=== PATIENT | male | born 1970 | race Caucasian/White ===

== ENCOUNTER 2025-02-06 19:46 | Inpatient (IN) | payer OTHER ==
[~2025-02-06] VITALS: Ht 185.4 cm; Wt 103.0 kg
[~2025-02-06 19:46] MED LIST: ASPI1TAB20 PO; ATOR-47 PO; CARV6.2551 PO; FENO54TA4 PO; HYDR-2579 PO; LISI2.5T47 PO
[2025-02-06] MEDS: ACETAMINOPHEN 325 MG TAB PO ONE (19:59)
[2025-02-06 20:22] LABS: Basophils # (auto) 0.1 10 ^3/uL (0-0.2); Eosinophils # (auto) 0.2 10 ^3/uL (0-0.8); Lymphocytes # (auto) 1.8 10 ^3/uL (0.4-5.4); White Blood Cell 18.2 10^3/uL (4.4-10.8)
[2025-02-06 20:24] LABS: Basophils % (auto) 0.3 % (0.0-2.0); Hematocrit 36.3 % (41.0-53.0); Hemoglobin 11.2 g/dL (13.5-17.5); Lymphocytes % (auto) 9.7 % (10.0-50.0); Mean Corpuscular Hemoglobin 23.1 pg (28.0-32.0); Mean Corpuscular Hgb Conc. 30.9 g/dL (32.0-36.0); Mean Corpuscular Volume 74.6 fL (80.0-100.0); Monocytes # (auto) 2.7 10 ^3/uL (0-1.3); Monocytes % (auto) 14.8 % (0.0-12.0); Neutrophils # (auto) 13.5 10 ^3/uL (1.6-8.6); Neutrophils % (auto) 74.2 % (37.0-80.0); Nucleated Red Blood Cells % 0.1 %; Platelet Count (auto) 287 10^3/uL (140-450); Red Blood Cells 4.86 10^6/uL (4.5-5.90); Red Cell Distribution Width 18.8 % (11.8-14.3)
[2025-02-06 20:37] LABS: Alanine Aminotransferase 26 U/L (7-40); Albumin 4.1 g/dL (3.2-4.8); Anion Gap 10 (5-15); Aspartate Aminotransferase 27 U/L (13-40); BUN/Creatinine Ratio 13.2 (10.0-20.0); Blood Urea Nitrogen 12 mg/dL (9-23); Calcium 9.5 mg/dL (8.7-10.4); Carbon Dioxide 24 mmol/L (20-31); Potassium 4.7 mmol/L (3.5-5.1); Total Protein 6.5 g/dL (5.7-8.2)
[2025-02-06 20:39] LABS: Alkaline Phosphatase 151 U/L (46-116); Bilirubin, Total 1.6 mg/dL (0.2-1.0); Chloride 98 mmol/L (98-107); Glucose 154 mg/dL (74-106); Sodium 132 mmol/L (136-145)
--- NOTE | 2025-02-06 21:01 | ED.PDOC ---
Musculoskeletal HPI Comments 54 y/o M is BIBA from [facility] due to elevated heart rate and temperature, today. Patient reports being seen at facility, initially for his Charcot foot ulcer he has on the bottom of his left foot with associated pain. Patient has a long history of multiple foot ulcers as well as a toe amputation due to his condition. He denies any having any chest pain, shortness of breath, extremity swelling, or other associated symptoms at this time. Patient was febrile at 101.6 at arrival. Chief Complaint: Lower Extremity Time Seen by MD: 19:50 Primary Care Provider: SOHA Reviewed Notes: Nurses Notes, Floor Attendant Notes, Medications, Allergies Allergies: Coded Allergies: NO KNOWN ALLERGIES (Unverified , 10/29/15) Home Meds Reported Medications Hydrocodone-Acetaminophen (Hydrocodone/Acetaminophen) 1 Tab Tab, 1 TAB PO TID, #90 TAB 10/29/15 Aspirin (Aspir-81) 81 Mg Tab, 1 TAB PO DAILY, #30 TAB 5 Refills 10/29/15 Fenofibrate (Fenofibrate) 54 Mg Tab, 1 TAB PO DAILY, #30 TAB 5 Refills 10/29/15 Atorvastatin Calcium (ATORVASTATIN CALCIUM) 80 Mg Tab, 1 TAB PO DAILY, #30 TAB 5 Refills 10/29/15 Lisinopril (Lisinopril) 2.5 Mg Tab, 1 TAB PO DAILY, #30 TAB 5 Refills 10/29/15 Carvedilol (Carvedilol) 6.25 Mg Tab, 1 TAB PO BID, #180 TAB 1 Refill 10/29/15 Information Source: Patient, Spouse Mode of Arrival: EMS Location: Left Extremity Location: Foot Timing: Days Prehospital treatment: Treatment Severity: Moderate Able to Move Extremity: Yes Bear Weight: Limited Pain: Moderate Hand Dominance: Right Mechanism: Other (Long history of foot ulcerations) Circumstances: Spontaneous Onset of Symptoms: Spontaneous Symptoms: Swelling, Pain DVT Risk Factors: NONE Past Medical History PAST MEDICAL HISTORY: CHF, DM, HTN Past Medical History (Other): Charcot foot Surgical History: Denies all surgeries Family History Family History: Unknown Social History Smoker: Non-Smoker Alcohol: Denies ETOH Use Drugs: Denies Drug Use Lives In: Home Constitutional: reports: fever; denies: chills, diaphoresis, fatigue, malaise, sweats, weakness, others EENTM: denies: blurred vision, double vision, ear bleeding, ear discharge, ear drainage, ear pain, ear ringing, eye pain, eye redness, hearing loss, mouth pain, mouth swelling, nasal discharge, nose bleeding, nose congestion, nose pain, photophobia, tearing, throat pain, throat swelling, voice changes, others Respiratory: denies: cough, hemoptysis, orthopnea, SOB at rest, shortness of breath, SOB with excertion, stridor, wheezing, others Cardiovascular: denies: chest pain, dizzy spells, diaphoresis, Dyspnea on exertion, edema, irregular heart beat, left arm pain, lightheadedness, palpitations, PND, syncope, others Gastrointestinal: denies: abdomen distended, abdominal pain, blood streaked bowels, constipated, diarrhea, dysphagia, difficulty swallowing, hematemesis, melena, nausea, poor appetite, poor fluid intake, rectal bleeding, rectal pain, vomiting, others Genitourinary: denies: burning, dysuria, flank pain, frequency, hematuria, incontinence, penile discharge, penile sore, pain, testicle pain, testicle swelling, urgency, others Neurological: denies: dizziness, fainting, headache, left sided numbness, left sided weakness, numbness, paresthesia, pre-existing deficit, right sided numbness, right sided weakness, seizure, speech problems, tingling, tremors, weakness, others Musculoskeletal: denies: back pain, gout, joint pain, joint swelling, muscle pain, muscle stiffness, neck pain, others Integumetry: reports: wounds (Bilateral foot ulcers); denies: bruises, change in color, change in hair/nails, dryness, laceration, lesions, lumps, rash, others Allergic/Immunocompromised: denies: Difficulty Healing, Frequent Infections, Hives, Itching, others Hematologic/Lymphatic: denies: anemia, blood clots, easy bleeding, easy bruising, swollen glands, others Endocrine: denies: excessive hunger, excessive sweating, excessive thirst, excessive urination, flushing, intolerance to cold, intolerance to heat, unexplained weight gain, unexplained weight loss, others Psychiatric: denies: anxiety, bipolar disorder, depression, hopeless, panic disorder, schizophrenia, sleepless, suicidal, others All Other Systems: Reviewed and Negative (as per HPI) Physical Exam General Appearance: Moderate Distress (Due to foot pain and swelling concerns.), Normal HEENT: Normal ENT Inspection, Pharynx Normal, TMs Normal Neck: Full Range of Motion, Non-Tender, Normal, Normal Inspection Respiratory: Chest Non-Tender, Lungs Clear, No Accessory Muscle Use, No Respiratory Distress, Normal Breath Sounds Cardiovascular: No Edema, No JVD, No Murmur, No Gallop, Normal Peripheral Pulses, Regular Rate/Rhythm Breast Exam: Deferred Gastrointestinal: No Organomegaly, Non Tender, No Pulsatile Mass, Normal Bowel Sounds, Soft Genitalia: Deferred Pelvic: Deferred Rectal: Deferred Extremities: Other (Patient displays bilateral pedal foot ulcers with left side significantly worse than right. Localized edema in both feet with localized erythema. Drainage appreciated in left foot greater than right.) Neurologic: Alert, No Motor Deficits, Normal Affect, Normal Mood, No Sensory Deficits Cerebellar Function: Normal Reflexes: Normal Skin: Dry, Normal Color, Warm Lymphatic: No Adenopathy Was a procedure done? Was a procedure done?: No Differential Diagnosis EXT Differential Diagnosis: Cellulitis, Septic, Other (Chronic foot ulcers) X-Ray, Labs, Meds, VS Vital Signs Date Time Temp Pulse Resp B/P (MAP) Pulse Ox O2 Delivery O2 Flow Rate FiO2 02/07/25 00:03 99 02/07/25 00:01 103 18 118/55 02/06/25 21:02 113 18 96/56 (69) 92 02/06/25 20:59 98.7 02/06/25 19:59 101.6 02/06/25 19:50 101.6 116 18 120/71 (87) 98 101.6 Lab Test 02/06/25 21:13 02/06/25 20:07 Range/Units Troponin I High Sensitivity 3 L 3 L </=54 ng/L White Blood Count 18.2 H 4.4-10.8 10^3/uL Red Blood Count 4.86 4.5-5.90 10^6/uL Hemoglobin 11.2 L 13.5-17.5 g/dL Hematocrit 36.3 L 41.0-53.0 % Mean Corpuscular Volume 74.6 L 80.0-100.0 fL Mean Corpuscular Hemoglobin 23.1 L 28.0-32.0 pg Mean Corpuscular Hemoglobin Concent 30.9 L 32.0-36.0 g/dL Red Cell Distribution Width 18.8 H 11.8-14.3 % Platelet Count 287 140-450 10^3/uL Mean Platelet Volume 7.3 6.9-10.8 fL Neutrophils (%) (Auto) 74.2 37.0-80.0 % Lymphocytes (%) (Auto) 9.7 L 10.0-50.0 % Monocytes (%) (Auto) 14.8 H 0.0-12.0 % Eosinophils (%) (Auto) 1.0 0.0-7.0 % Basophils (%) (Auto) 0.3 0.0-2.0 % Neutrophils # (Auto) 13.5 H 1.6-8.6 10 ^3/uL Lymphocytes # (Auto) 1.8 0.4-5.4 10 ^3/uL Monocytes # (Auto) 2.7 H 0-1.3 10 ^3/uL Eosinophils # (Auto) 0.2 0-0.8 10 ^3/uL Basophils # (Auto) 0.1 0-0.2 10 ^3/uL Nucleated Red Blood Cells 0.1 % Sodium Level 132 L 136-145 mmol/L Potassium Level 4.7 3.5-5.1 mmol/L Chloride Level 98 98-107 mmol/L Carbon Dioxide Level 24 20-31 mmol/L Anion Gap 10 5-15 Blood Urea Nitrogen 12 9-23 mg/dL Creatinine 0.91 0.700-1.30 mg/dL Glomerular Filtration Rate Calc 100 >90 mL/min BUN/Creatinine Ratio 13.2 10.0-20.0 Serum Glucose 154 H 74-106 mg/dL Lactic Acid Level 1.8 0.4-2.0 mmol/L Calcium Level 9.5 8.7-10.4 mg/dL Total Bilirubin 1.6 H 0.2-1.0 mg/dL Aspartate Amino Transferase (AST) 27 13-40 U/L Alanine Aminotransferase (ALT) 26 7-40 U/L Alkaline Phosphatase 151 H 46-116 U/L B-Type Natriuretic Peptide 74.81 0-100 pg/mL Total Protein 6.5 5.7-8.2 g/dL Albumin 4.1 3.2-4.8 g/dL Current Medications Medications (Trade) Dose Ordered Sig/Leyla Route Start Time Stop Time Status Last Admin Acetaminophen (Tylenol Tablet) 1,000 mg ONCE ONCE PO 02/06/25 20:00 02/06/25 20:01 DC 02/06/25 19:59 Hydromorphone HCl (Dilaudid Injection) 0.5 mg ONCE ONCE IM 02/06/25 20:00 02/06/25 20:01 DC 02/07/25 00:01 Piperacillin Sod/ Tazobactam Sod 100 ml @ 100 mls/hr ONCE ONCE IV 02/06/25 23:45 02/07/25 00:44 02/07/25 00:02 X-Ray, Labs, Meds, VS Comment All studies performed at the ED today were evaluated by me personally. EKG revealed a sinus rhythm with a rate of 99. Nonspecific intraventricular conduction delay as well as signs of inferior lateral infarct that is old. DE interval 140 and QT interval of 353. Unremarkable EKG. Serum laboratories confirmed a significant leukocytosis, anemia, hyponatremia and elevated bilirubin. CT of fluid for osteo utilize was pending. CT of abdomen for elevated laboratories was pending at time of this note. Empiric dual antibiotics has been started for the foot ulcerations. Imaging studies will be reviewed when returned. Patient will be admitted for IV antibiotics as well as podiatry evaluation. Time of 1ST Reevaluation: 23:47 Reevaluation 1ST: Improved Consultation: PCP, Other (Animal Cop) Patient Education/Counseling: Diagnosis, Treatment Family Education/Counseling: Diagnosis, Treatment, No Family Present Departure 1 Departure Time of Disposition: 23:48 Impression: Primary Impression: Cellulitis Additional Impressions: Foot ulceration Hyponatremia Elevated bilirubin Anemia Disposition: 09 ADMITTED INPATIENT Condition: Stable Discharged With: Self, Spouse Critical Care Note Critical Care Time?: No Stability Stability form required: No Heart Score Heart Score: Heart Score Response (Comments) Value History N/A 0 EKG N/A 0 Age N/A 0 Risk Factors N/A 0 Troponin N/A 0 Total 0 I personally scribed for GUIDO RICHARDS PAC ([email or web address]) on 02/06/25 at 21:01. Electronically submitted by Neil Bergeron ([email or web address]). GUIDO RICHARDS PAC Feb 06, 2025 21:01
[2025-02-06] MEDS ORDERED: VANCOMYCIN PER PHARMACY 0 MG IV SCH (23:45)
[2025-02-07] VITALS: PULSE 96; RESP 18; O2SAT 96
[2025-02-07] MEDS: HYDROMORPHONE HCL 1 MG/ML INJ IM ONE (00:01)
[2025-02-07] MEDS: PIPERACILLIN-TAZOB 3.375GM 100 ML IV ONE ×2 (00:02→09:12)
--- NOTE | 2025-02-07 00:12 | DVH ---
EXAM: CT CT L FOOT WO CONTRAST HISTORY: Rule out osteo COMPARISON: None TECHNIQUE: Noncontrast axial CT images of the left foot were performed. Sagittal and coronal reformat umm images were obtained. This CT exam was performed using one or more of the following dose reductio n techniques: Automated exposure control, adjustment of the mA and/or kv according to patient size, o r the use of iterative reconstruction techniques. Radiation Dose Information: CT Dose: CTDI volume is 7.75+ 0.14 mGy. Dose-length product is 190.58 mGy *cm FINDINGS: Normal mineralization and alignment. Ankle joint is preserved. Subtalar joint is maintained. There is lucency and destructive changes in the minimal /base of the 2nd through 5th metatarsals as well as s clerosis of the these metatarsals throughout nearly the entire shaft. There is destructive changes wi th associated gas in the navicular, all of the cuneiforms and the cuboid bone. Associated gas through out the midfoot. There is a tract of gas extending to the plantar skin surface at the midfoot (series 602, image 67. There is diffuse subcutaneous edema in the left foot most pronounced at the mid aspec t. No obvious fluid collection on noncontrast study. IMPRESSION: 1. Destructive change with lucency in the proximal and base of the 2nd through 5th metatarsals, navic ular, all of the cuneiform bones, and cuboid bone with associated gas likely osteomyelitis. 2. No definite abscess. 3. Tract of gas extends to the plantar skin surface at the midfoot. 4. Diffuse soft tissue edema in the left foot most pronounced in the midfoot.
--- NOTE | 2025-02-07 00:26 | DVH ---
Exam: CT CT AB PEL WO CON-NO ORAL OR IV History: Elevated labs Comparison Study: None Technique: Multidetector spiral CT of the abdomen was performed from lung bases to pubic symphysis. I maging was performed without IV contrast. Axial, coronal and sagittal multiplanar reformats were obta ined from the axial data set by the technologist. Radiation Dose : 1. Abdomen/Pelvis: CTDIvol 22.63 mGy, DLP 1428.96 mGy*cm. Findings: Evaluation of solid organs is limited due to lack of intravenous contrast use. Lung Bases: No acute or significant lung base finding. Normal heart size. No pleural or pericardial effusion. Median sternotomy sutures are noted. Liver: The liver is normal in size. No focal lesions. Gallbladder and Biliary Tree: Unremarkable Spleen: Unremarkable Pancreas: The pancreas is grossly normal in appearance. Adrenal Glands: Unremarkable Kidneys: Kidneys are grossly normal without calculi or hydronephrosis. Bladder: Grossly unremarkable for degree of distention. Bowel: The stomach is grossly normal in appearance. Small bowel and colon are normal in caliber and d istribution. The appendix is normal. Ascites: Absent Lymphadenopathy: No mesenteric, retroperitoneal or periportal lymphadenopathy. Abdominal Wall and Mesentery: Unremarkable. Vasculature: The visualized abdominal aorta is normal in size and caliber. Atherosclerotic vascular c alcifications are noted. Evaluation of abdominal and pelvic vessels is limited due to lack of intrav enous contrast. Pelvic Organs: Unremarkable. Fat containing left inguinal hernia. Musculoskeletal: No aggressive focal bony lesions, acute fractures or dislocation. IMPRESSION: 1. No acute abdominal or pelvic findings. Radiation optimization: All CT scans at this facility use at least one of these dose optimization ruddy hniques: automated exposure control mA and/or kV adjustment per patient size (includes targeted exam s where dose is matched to clinical indication) or iterative reconstruction.
[2025-02-07] MEDS: HYDROMORPHONE HCL 1 MG/ML INJ IV ONE (04:01)
[2025-02-07] MEDS: KETOROLAC TROMETH 30 MG/ML 1ML VIAL IV ONE (05:24)
[2025-02-07] MEDS ORDERED: DEXTROSE (50%) 50ML SYRG IV PRN ×2 (08:30→10:45)
[2025-02-07] MEDS ORDERED: VANCOMYCIN PER PHARMACY 0 MG IV SCH (08:30)
--- NOTE | 2025-02-07 08:42 | DVHHP2 ---
History of Present Illness Reason for Visit: Diabetic foot ulcer History of Present Illness This 54-year-old male with past medical history of diabetes, chronic diabetic foot ulcer s/p right 5th toe amputation, osteomyelitis, Charcot foot ulcers, hypertension, and obesity, presents in the ED with a chief complaint of elevated heart rate and temperature. The patient reports was being seen at [facility] urgent care and was advised to go to the ER due to elevated heart rate and temperature. The patient reports chronic right plantar diabetic foot ulcer for many years. He states that left plantar diabetic foot ulcer started about a month ago. He was being seen by his Podiatry for chronic diabetic foot ulcer. Denies dizziness, chest pain, shortness of breath, edema, or other acute symptoms Past Medical History As stated in HPI Past Surgical History Right 5th toe amputation Family History Reviewed, non-contributory to the management of this case. Past Social History The patient lives at home, denies smoking, alcohol or illicit drugs abuse. Review of Systems Constitutional: Yes: Fever, Malaise; No: Chills, Sweats, Weakness, Other Eyes: No: Pain, Vision change, Conjunctivae inflammation, Eyelid inflammation, Other, Redness ENT: No: Ear pain, Ear discharge, Nose pain, Nose discharge, Nose congestion, Mouth pain, Mouth swelling, Throat pain, Throat swelling, Other Respiratory: No: Cough, Dry, Shortness of breath, SOB with excertion, Wheezing, Hemoptysis, Pleuritic Pain, Sputum, Wheezing, Other Cardiovascular: No: Chest Pain, Palpitations, Orthopnea, Paroxysmal Noc. Dyspnea, Edema, Lt Headedness, Other Gastrointestinal: No: Nausea, Vomiting, Abdominal Pain, Diarrhea, Constipation, Melena, Hematochezia, Other Genitourinary: No Dysuria, No Frequency, No Incontinence, No Hematuria, No Retention, No Other Musculoskeletal: No: other, neck pain, shoulder pain, arm pain, back pain, hand pain, leg pain, foot pain Skin: Rash, Lesions, Other (open wounds bilat plantar); No: Jaundice, Bruising Allergies: Coded Allergies: NO KNOWN ALLERGIES (Unverified , 10/29/15) Medications Current Medications Medications Dose Ordered Sig/Leyla Route Start Time Stop Time Status Last Admin Dose Admin Vancomycin HCl 0 ml @ 0 mls/hr UD IV 02/06/25 23:45 UNV Exam Vital Signs Vital Signs Date Time Temp Pulse Resp B/P (MAP) Pulse Ox O2 Delivery O2 Flow Rate FiO2 02/07/25 06:00 92 16 98/47 (64) 94 02/07/25 00:00 Room Air* 0 21 21 02/06/25 20:59 98.7 General Appearance: Alert, Oriented X3, mild distress HEENT: Atraumatic, PERRLA, EOMI Respiratory: Clear to auscultation, Normal air movement Cardiovascular: Regular rate, Normal S1, Normal S2 Abdominal: Normal bowel sounds, Soft, No tenderness Extremities: Other (Bilateral plantar diabetic foot ulcer with purulent drainage and foul smell) Neuro: Normal speech Psych/Mental Status: Mental status NL Labs/Xrays Labs Test 02/06/25 21:13 02/06/25 20:07 Range/Units Troponin I High Sensitivity 3 L </=54 ng/L White Blood Count 18.2 H 4.4-10.8 10^3/uL Red Blood Count 4.86 4.5-5.90 10^6/uL Hemoglobin 11.2 L 13.5-17.5 g/dL Hematocrit 36.3 L 41.0-53.0 % Mean Corpuscular Volume 74.6 L 80.0-100.0 fL Mean Corpuscular Hemoglobin 23.1 L 28.0-32.0 pg Mean Corpuscular Hemoglobin Concent 30.9 L 32.0-36.0 g/dL Red Cell Distribution Width 18.8 H 11.8-14.3 % Platelet Count 287 140-450 10^3/uL Mean Platelet Volume 7.3 6.9-10.8 fL Neutrophils (%) (Auto) 74.2 37.0-80.0 % Lymphocytes (%) (Auto) 9.7 L 10.0-50.0 % Monocytes (%) (Auto) 14.8 H 0.0-12.0 % Eosinophils (%) (Auto) 1.0 0.0-7.0 % Basophils (%) (Auto) 0.3 0.0-2.0 % Neutrophils # (Auto) 13.5 H 1.6-8.6 10 ^3/uL Lymphocytes # (Auto) 1.8 0.4-5.4 10 ^3/uL Monocytes # (Auto) 2.7 H 0-1.3 10 ^3/uL Eosinophils # (Auto) 0.2 0-0.8 10 ^3/uL Basophils # (Auto) 0.1 0-0.2 10 ^3/uL Nucleated Red Blood Cells 0.1 % Sodium Level 132 L 136-145 mmol/L Potassium Level 4.7 3.5-5.1 mmol/L Chloride Level 98 98-107 mmol/L Carbon Dioxide Level 24 20-31 mmol/L Anion Gap 10 5-15 Blood Urea Nitrogen 12 9-23 mg/dL Creatinine 0.91 0.700-1.30 mg/dL Glomerular Filtration Rate Calc 100 >90 mL/min BUN/Creatinine Ratio 13.2 10.0-20.0 Serum Glucose 154 H 74-106 mg/dL Lactic Acid Level 1.8 0.4-2.0 mmol/L Calcium Level 9.5 8.7-10.4 mg/dL Total Bilirubin 1.6 H 0.2-1.0 mg/dL Aspartate Amino Transferase (AST) 27 13-40 U/L Alanine Aminotransferase (ALT) 26 7-40 U/L Alkaline Phosphatase 151 H 46-116 U/L B-Type Natriuretic Peptide 74.81 0-100 pg/mL Total Protein 6.5 5.7-8.2 g/dL Albumin 4.1 3.2-4.8 g/dL PROCEDURE(s): LFTCT - CT L FOOT WO CONTRAST REASON: Rule out osteo ORDER NUMBER(s): [id number], ACCESSION NUMBER(s): [id number] EXAM: CT CT L FOOT WO CONTRAST HISTORY: Rule out osteo COMPARISON: None TECHNIQUE: Noncontrast axial CT images of the left foot were performed. Sagittal and coronal reformatted images were obtained. This CT exam was performed using one or more of the following dose reduction techniques: Automated exposure control, adjustment of the mA and/or kv according to patient size, or the use of iterative reconstruction techniques. Radiation Dose Information: CT Dose: CTDI volume is 7.75+ 0.14 mGy. Dose-length product is 190.58 mGy*cm FINDINGS: Normal mineralization and alignment. Ankle joint is preserved. Subtalar joint is maintained. There is lucency and destructive changes in the minimal /base of the 2nd through 5th metatarsals as well as sclerosis of the these metatarsals throughout nearly the entire shaft. There is destructive changes with associated gas in the navicular, all of the cuneiforms and the cuboid bone. Associated gas throughout the midfoot. There is a tract of gas extending to the plantar skin surface at the midfoot (series 602, image 67. There is diffuse subcutaneous edema in the left foot most pronounced at the mid aspect. No obvious fluid collection on noncontrast study. IMPRESSION: 1. Destructive change with lucency in the proximal and base of the 2nd through 5th metatarsals, navicular, all of the cuneiform bones, and cuboid bone with associated gas likely osteomyelitis. 2. No definite abscess. 3. Tract of gas extends to the plantar skin surface at the midfoot. 4. Diffuse soft tissue edema in the left foot most pronounced in the midfoot. Assessment/Plan Assessment/Plan # diabetic foot ulcer, bilateral plantar # possible osteomyelitis # rule out sepsis # chronic diabetic foot ulcer s/p right 5th toe amputation Admit to med/surg unit Darell Olivera Podiatry consult blood & Wound culture Wound consult IV slowly # DM type 2 with hyperglycemia A1c 7.3 ISS checked a1c Statins # hypertension Hold BP meds given soft BP # obesity Lifestyle modification counseled with regular exercise, diet and weight loss DVT prophylaxis Medical plan discussed with patient Plan discussed with: Patient Date of Service: Feb 07, 2025 Billing Provider: GALE BETANCOURT Common Visit Codes: 13389-OESHVBD INP/OBS CARE (HIGH) GALE BETANCOURT Feb 07, 2025 08:42
[2025-02-07] MEDS: SODIUM CHLORIDE 0.9% 2,250 ML IV ONE (09:13)
[2025-02-07 09:41] LABS: Triglycerides 95 mg/dL (< 150)
[2025-02-07 09:42] LABS: LDL Cholesterol 48 mg/dL (< 100)
[2025-02-07 09:43] LABS: Cholesterol 108 mg/dL (< 200); HDL Cholesterol 34 mg/dL (40-59)
[2025-02-07] MEDS: FENOFIBRATE 54 MG PO SCH (10:00)
[2025-02-07] MEDS: ENOXAPARIN SOD 40 MG/0.4 ML SYRINGE SC SCH (11:07)
[2025-02-07] MEDS: ASPirin-EC 81 mg tab PO SCH (11:07)
[2025-02-07] MEDS: ONDANSETRON HCL 4 MG/2 ML VIAL IV PRN (11:07)
[2025-02-07] MEDS: MORPHINE SULFATE INJ 2 MG/ml SYRG IV PRN (11:08)
[2025-02-07] MEDS: InsuLIN REG 1unit/0.01ml Soln (100units/ml) SC SCH (11:30)
[2025-02-07] MEDS ORDERED: InsuLIN REG 1unit/0.01ml Soln (100units/ml) SC SCH (11:30)
[2025-02-07] MEDS ORDERED: ACCU-CHEK COMFORT CURVE STRIP VI SCH (11:30)
[2025-02-07] MEDS: ACCU-CHEK COMFORT CURVE STRIP VI SCH (11:56)
[2025-02-07] MEDS: SODIUM CHLORIDE 0.9% 1,000 ML IV SCH (13:27)
[2025-02-07] MEDS: VANCOMYCIN 1.75GM/350ML 350 ML IV SCH (16:43)
[2025-02-07 19:30] VITALS: PULSE 112; RESP 17; O2SAT 98
[2025-02-07] MEDS: HYDROcodone-ACET 5/325MG TAB PO PRN (20:52)
[2025-02-07] MEDS: PIPERACILLIN-TAZOB 3.375GM 100 ML IV SCH (21:06)
[2025-02-07] MEDS: ACETAMINOPHEN 325 MG TAB PO PRN (22:08)
[2025-02-07] MEDS: ATORVASTATIN 20 MG TAB PO SCH (22:53)
[2025-02-08] MEDS: INSULIN LANTUS (GLARGINE) 1 /0.01ml (100units/ml) SC SCH (02:26)
[2025-02-08 06:16] LABS: Alanine Aminotransferase 15 U/L (7-40); Albumin 3.9 g/dL (3.2-4.8); Anion Gap 10 (5-15); Aspartate Aminotransferase 17 U/L (13-40); BUN/Creatinine Ratio 13.2 (10.0-20.0); Bilirubin, Total 1.1 mg/dL (0.2-1.0); Blood Urea Nitrogen 9 mg/dL (9-23); Calcium 9.5 mg/dL (8.7-10.4); Carbon Dioxide 23 mmol/L (20-31); Chloride 102 mmol/L (98-107); Potassium 3.9 mmol/L (3.5-5.1); Total Protein 6.7 g/dL (5.7-8.2)
[2025-02-08 06:21] LABS: Alkaline Phosphatase 128 U/L (46-116); Glucose 148 mg/dL (74-106); Sodium 135 mmol/L (136-145)
[2025-02-08 08:02] LABS: Basophils # (auto) 0 10 ^3/uL (0-0.2); Eosinophils # (auto) 0.3 10 ^3/uL (0-0.8); Eosinophils % (auto) 2.6 % (0.0-7.0)
[2025-02-08 08:03] LABS: Basophils % (auto) 0.4 % (0.0-2.0); Hematocrit 29.6 % (41.0-53.0); Hemoglobin 9.5 g/dL (13.5-17.5); Lymphocytes # (auto) 1.3 10 ^3/uL (0.4-5.4); Lymphocytes % (auto) 12.7 % (10.0-50.0); Mean Corpuscular Hemoglobin 24.3 pg (28.0-32.0); Mean Corpuscular Hgb Conc. 32.2 g/dL (32.0-36.0); Mean Corpuscular Volume 75.4 fL (80.0-100.0); Monocytes # (auto) 1.1 10 ^3/uL (0-1.3); Monocytes % (auto) 11.2 % (0.0-12.0); Neutrophils # (auto) 7.4 10 ^3/uL (1.6-8.6); Neutrophils % (auto) 73.1 % (37.0-80.0); Platelet Count (auto) 219 10^3/uL (140-450); Red Blood Cells 3.93 10^6/uL (4.5-5.90); Red Cell Distribution Width 18.9 % (11.8-14.3); White Blood Cell 10.1 10^3/uL (4.4-10.8)
[2025-02-08] MEDS: VANCOMYCIN 1.75GM/350ML 350 ML IV SCH (09:05)
[2025-02-08] MEDS: PIPERACILLIN-TAZOB 3.375GM 100 ML IV SCH (10:15)
--- NOTE | 2025-02-08 13:25 | DVHPN2 ---
Progress Note - Dictate Date Seen: Feb 08, 2025 Has the PT tested + for MRSA If YES, has PT been informed?: No Medical Necessity Reason Pt with a Central, PICC or Fol: No Subjective Patient was seen and evaluated in ER hallway 14. Patient at the bedside. Patient feels frustrated as he has not been able to sleep for over 24 hours as he has not been assigned a room and has been there apparently since Saturday. Patient no longer having fevers and denies any chills. Patient has been eating without any acute complaints. Patient denies any nausea, vomiting, chest pain, or shortness of breath. Patient says that wound care nurse came by yesterday but not yet today. vital signs Vital Sign Date Time Temp Pulse Resp B/P (MAP) Pulse Ox O2 Delivery O2 Flow Rate FiO2 02/08/25 06:00 105 14 107/51 (69) 96 02/07/25 23:08 99.3 99.3 02/07/25 19:30 Room Air* 0 21 21 Total Intake and Output 02/07/25 02/07/25 02/08/25 15:00 23:00 07:00 Intake Total 2450 ml 1305 ml 832 ml Balance 2450 ml 1305 ml 832 ml medications Current Medications Medications Dose Ordered Sig/Leyla Route Start Time Stop Time Status Last Admin Dose Admin Vancomycin HCl 0 ml @ 0 mls/hr UD IV 02/06/25 23:45 UNV Acetaminophen/ Hydrocodone Bitart 1 tab Q4HP PRN PO 02/07/25 08:30 02/08/25 04:16 1 TAB Ondansetron HCl 4 mg Q4HP PRN IV 02/07/25 08:30 02/07/25 11:07 4 MG Enoxaparin Sodium 40 mg DAILY SC 02/07/25 10:00 02/07/25 11:07 40 MG Acetaminophen 650 mg Q6HP PRN PO 02/07/25 08:30 02/07/25 22:08 650 MG Morphine Sulfate 2 mg Q4HPRN PRN IV 02/07/25 08:30 02/07/25 16:43 2 MG Vancomycin HCl 0 ml @ 0 mls/hr UD IV 02/07/25 08:30 Aspirin 81 mg DAILY PO 02/07/25 10:00 02/07/25 11:07 81 MG Atorvastatin Calcium 80 mg HS PO 02/07/25 22:00 02/07/25 22:53 80 MG Patient Own Medication 1 tab DAILY PO 02/07/25 10:00 Sodium Chloride 1,000 ml @ 100 mls/hr Q10H IV 02/07/25 08:30 02/08/25 04:54 100 MLS/HR Diagnostic Test (Pha) 1 strip ACHS 02/07/25 11:30 02/08/25 07:01 1 STRIP Insulin Human Regular ACHS SC 02/07/25 11:30 02/08/25 07:03 3 UNITS Dextrose 50 ml UD PRN IV 02/07/25 10:45 Insulin Glargine 10 units HS SC 02/07/25 22:00 02/08/25 02:26 10 UNITS Vancomycin HCl 350 ml @ 233.333 mls/hr Q12H IV 02/08/25 08:00 02/08/25 09:05 233.333 MLS/HR Piperacillin Sod/ Tazobactam Sod 100 ml @ 25 mls/hr Q6H IV 02/08/25 09:00 02/08/25 10:15 25 MLS/HR objective GEN: A&Ox3, NAD HEENT: NC/AT, EOMI CV: S1S2+, RRR, No rubs, gallops, or murmurs Lungs: Clear to auscultation bilaterally Abd: Soft, NT, ND + BS RLE: patient has lateral mid foot ulcer that seems to be granulated and healing. LLE: Patient has a significantly swollen foot, erythema, adn tenderness on exam. Patient has mid foot plantar aspect ulcer with drainage from the site. patient has an additional healing ulcer int he plantar surface at the distal plantar foot that is is not stageable. laboratory and microbiology Laboratory Tests 02/08/25 07:51 02/08/25 05:24 Test 02/08/25 05:24 Range/Units Serum Glucose 148 H 74-106 mg/dL Problem List 1. SIRS 2. Left foot Infected diabetic foot ulcer with surrounding cellulitis 3. Possible Left foot osteomyelitis Secondary Diagnosis: 4. Chronic Right foot diabetic foot ulcer 5. Diabetes Mellitus Type 2 with complications 6. Essential HTN 7. Hyperlipidemia Assessment/Plan - Continue broad spectrum Abx with Vancomycin And Zosyn Day 2, continue to follow BCx and wound Cx results, ID consult has been requested. - Podiatry evaluation is pending. Patient has cellulitic changes of the left foot with possible underline osteomyelitis. - Diabetic Diet, AC/HS accuchecks, and ISS (HbA1c at 7,3) - AM Labs, ESR and CRP level - Hydralazine 10mg IV PRN Q6H for SBP > 150mmHg DVT prophylaxis: Lovenox 40mg SQ daily Full Code Dispo: Continue to monitor on Med Surg. Plan discussed with: Patient, Spouse CAITY BAUTISTA MD Feb 08, 2025 13:25
[2025-02-08] MEDS ORDERED: hydrALAZINE HCL 20 MG/ML VL IV PRN (13:30)
[2025-02-08 14:13] LABS: Erythrocyte Sedimentation Rate 87 mm/hr (0-20)
--- NOTE | 2025-02-08 14:52 | ECG ---
[facility] Test Date: 2025-02-07 Test Time: 00:03:09 Pat Name: KRANTHI WHITFIELD Department: ED Room: 0220 Gender: M Delivery Crew Member: NAN : 1970 Requested By: GUIDO RICHARDS Order Number: [id number] Reading MD: Virja Andre Measurements Intervals [place] Rate: 99 P: -15 OR: 140 QRS: 58 QRSD: 117 T: 5 QT: 353 QTc: 453 Interpretive Statements Sinus rhythm Nonspecific intraventricular conduction delay Inferolateral infarct, old Electronically Signed On 02-10-2025 20:54:35 PDT by Viraj Andre Please click the below link to view image of tracing.
[2025-02-08 16:45] VITALS: PULSE 104; RESP 19; O2SAT 97
[2025-02-08] MEDS ORDERED: GABA-1250 PO (17:21)
[2025-02-08] MEDS ORDERED: GLIP10TA21 PO (17:21)
[2025-02-08] MEDS ORDERED: ATOR20TA PO (17:23)
[2025-02-08] MEDS ORDERED: BISO5TAB44 PO (17:25)
[2025-02-08] MEDS ORDERED: PRAM0.373 PO (17:28)
[2025-02-08] MEDS ORDERED: SPIR25TA8 PO (17:29)
[2025-02-08] MEDS ORDERED: DULO60CA41 PO (17:30)
[2025-02-08] MEDS ORDERED: TRAZ-228 PO (17:32)
[2025-02-08] MEDS ORDERED: CYCL-837 PO (17:33)
[2025-02-08] MEDS ORDERED: DOXY50CA PO (17:35)
[2025-02-08] MEDS ORDERED: FURO20TA4 PO (17:36)
[2025-02-08] MEDS ORDERED: LEVO750T40 PO (17:36)
[2025-02-08 20:00] VITALS: PULSE 107; RESP 18; O2SAT 96
[2025-02-08 21:00] VITALS: BP 115/69; PULSE 107; RESP 18; TEMP 98.1; O2SAT 96
[2025-02-09] VITALS (8 sets, daily range): BP systolic 98–137; BP diastolic 53–63; PULSE 88–98; RESP 17–18; TEMP 97.5–98.7; O2SAT 97–99
[2025-02-09 08:38] LABS: Basophils # (auto) 0 10 ^3/uL (0-0.2); Eosinophils # (auto) 0.3 10 ^3/uL (0-0.8); Hemoglobin 10.3 g/dL (13.5-17.5); Lymphocytes # (auto) 1.3 10 ^3/uL (0.4-5.4); Monocytes # (auto) 0.9 10 ^3/uL (0-1.3); Neutrophils # (auto) 5.8 10 ^3/uL (1.6-8.6)
[2025-02-09 08:40] LABS: Basophils % (auto) 0.3 % (0.0-2.0); Hematocrit 31.4 % (41.0-53.0); Lymphocytes % (auto) 15.7 % (10.0-50.0); Mean Corpuscular Hemoglobin 24.5 pg (28.0-32.0); Mean Corpuscular Hgb Conc. 32.6 g/dL (32.0-36.0); Mean Corpuscular Volume 75.1 fL (80.0-100.0); Monocytes % (auto) 10.6 % (0.0-12.0); Neutrophils % (auto) 69.4 % (37.0-80.0); Platelet Count (auto) 252 10^3/uL (140-450); Red Blood Cells 4.18 10^6/uL (4.5-5.90); Red Cell Distribution Width 18.9 % (11.8-14.3); White Blood Cell 8.3 10^3/uL (4.4-10.8)
[2025-02-09 08:50] LABS: Anion Gap 12 (5-15); Carbon Dioxide 26 mmol/L (20-31); Chloride 101 mmol/L (98-107); Potassium 3.9 mmol/L (3.5-5.1); Sodium 139 mmol/L (136-145)
[2025-02-09 08:51] LABS: Calcium 9.9 mg/dL (8.7-10.4)
[2025-02-09 08:56] LABS: BUN/Creatinine Ratio 10.5 (10.0-20.0)
[2025-02-09 08:57] LABS: Blood Urea Nitrogen 8 mg/dL (9-23); Glucose 115 mg/dL (74-106)
--- NOTE | 2025-02-09 09:44 | DVH ---
CLINICAL HISTORY: 54 years old, Male; evaluate for osteomylitis. TECHNIQUE: Multi sequence multi planar MRI images of the left foot were obtained without IV contrast . COMPARISON: CT CT L FOOT WO CONTRAST on DOS: 02/06/25 FINDINGS: There is deformity, sclerosis, and cortical destruction involving the midfoot, including t he metatarsal bases, cuneiforms, cuboid, anterior calcaneus, and navicular with surrounding soft tiss ue edema and multiple displaced osseous fragments, most consistent with sequelae of neuropathic joint . There is sclerosis extending more distally in the 2nd through 5th metatarsal shafts. There is a wou nd at the plantar aspect of the midfoot near the level of the cuboid with soft tissue inflammatory ch anges extending from the wound to the cuboid. Superimposed osteomyelitis can not be excluded. Limited evaluation for abscess on noncontrast enhanced exam. IMPRESSION: 1. 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 2. Wound at the plantar aspect of the midfoot near the cuboid with adjacent soft tissue inflammatory changes, suspected cellulitis in the appropriate clinical setting. Osteomyelitis not excluded given t he extensive marrow signal abnormality involving the bones of the midfoot as detailed above, which ma y be seen with sequela of neuropathic arthropathy or osteomyelitis. 3. Limited evaluation for abscess on noncontrast enhanced exam. Prominent soft tissue edema and ill-d efined fluid around the midfoot and adjacent to the wound at the plantar aspect of the midfoot.
--- NOTE | 2025-02-09 11:16 | DVHPN2 ---
Progress Note - Dictate Date Seen: Feb 09, 2025 Has the PT tested + for MRSA If YES, has PT been informed?: No Medical Necessity Reason Pt with a Central, PICC or Fol: No Subjective Pt feels better today without any acute complaints. Patient was seen by ID doctor and currently awaiting assessment by Podiatry. vital signs Vital Sign Date Time Temp Pulse Resp B/P (MAP) Pulse Ox O2 Delivery O2 Flow Rate FiO2 02/09/25 10:49 76 18 111/76 02/09/25 09:11 97.8 98 97.8 02/08/25 20:00 Room Air* 0 21 Total Intake and Output 02/08/25 02/08/25 02/09/25 15:00 23:00 07:00 Intake Total 1613 ml 350 ml 500 ml Balance 1613 ml 350 ml 500 ml medications Current Medications Medications Dose Ordered Sig/Leyla Route Start Time Stop Time Status Last Admin Dose Admin Vancomycin HCl 0 ml @ 0 mls/hr UD IV 02/06/25 23:45 UNV Acetaminophen/ Hydrocodone Bitart 1 tab Q4HP PRN PO 02/07/25 08:30 02/08/25 17:57 1 TAB Ondansetron HCl 4 mg Q4HP PRN IV 02/07/25 08:30 02/07/25 11:07 4 MG Enoxaparin Sodium 40 mg DAILY SC 02/07/25 10:00 02/09/25 10:11 40 MG Acetaminophen 650 mg Q6HP PRN PO 02/07/25 08:30 02/07/25 22:08 650 MG Morphine Sulfate 2 mg Q4HPRN PRN IV 02/07/25 08:30 02/09/25 10:49 2 MG Vancomycin HCl 0 ml @ 0 mls/hr UD IV 02/07/25 08:30 Aspirin 81 mg DAILY PO 02/07/25 10:00 02/09/25 10:11 81 MG Atorvastatin Calcium 80 mg HS PO 02/07/25 22:00 02/08/25 21:49 80 MG Patient Own Medication 1 tab DAILY PO 02/07/25 10:00 Sodium Chloride 1,000 ml @ 100 mls/hr Q10H IV 02/07/25 08:30 02/09/25 10:11 100 MLS/HR Diagnostic Test (Pha) 1 strip ACHS 02/07/25 11:30 02/09/25 06:33 1 STRIP Insulin Human Regular ACHS SC 02/07/25 11:30 02/08/25 21:57 2 UNITS Dextrose 50 ml UD PRN IV 02/07/25 10:45 Insulin Glargine 10 units HS SC 02/07/25 22:00 02/08/25 21:59 10 UNITS Piperacillin Sod/ Tazobactam Sod 100 ml @ 25 mls/hr Q6H IV 02/08/25 09:00 02/09/25 10:10 25 MLS/HR Hydralazine HCl 10 mg Q6HP PRN IV 02/08/25 13:30 Vancomycin HCl 300 ml @ 200 mls/hr Q12H IV 02/09/25 11:00 objective GEN: A&Ox3, NAD HEENT: NC/AT, EOMI CV: S1S2+, RRR, No rubs, gallops, or murmurs Lungs: Clear to auscultation bilaterally Abd: Soft, NT, ND + BS LE: Patient bilateral feet with kerlex dressing that is clean, dry, and intact. laboratory and microbiology Laboratory Tests 02/09/25 06:59 Test 02/09/25 06:59 Range/Units Serum Glucose 115 H 74-106 mg/dL Problem List 1. SIRS 2. Left foot Infected diabetic foot ulcer with surrounding cellulitis 3. Possible Left foot osteomyelitis Secondary Diagnosis: 4. Chronic Right foot diabetic foot ulcer 5. Diabetes Mellitus Type 2 with complications 6. Essential HTN 7. Hyperlipidemia Assessment/Plan - Continue broad spectrum Abx with Vancomycin And Zosyn Day 3, BCx without any growth to date. Wound Cx not completed, ID is on board. - Podiatry evaluation is pending. Patient has cellulitic changes of the left foot with plantar ulcer. - MRI completed today also concerning for possible osteomyelitis. - Diabetic Diet, AC/HS accuchecks, and ISS (HbA1c at 7.3) - ESR 87 and CRP > 20 - AM Labs, - Hydralazine 10mg IV PRN Q6H for SBP > 150mmHg DVT prophylaxis: Lovenox 40mg SQ daily Full Code Dispo: Continue to monitor on Med Surg. Plan discussed with: Patient CAITY BAUTISTA MD Feb 09, 2025 11:16
[2025-02-09 12:25] LABS: Bilirubin, Direct 0.4 mg/dL (<0.3); Bilirubin, Total 1.1 mg/dL (0.2-1.0)
[2025-02-09 12:26] LABS: % Iron Saturation 8.7 % (20-55)
--- NOTE | 2025-02-09 13:22 | DVHINCON2 ---
Date Seen: Feb 09, 2025 Reason for Consultation Left foot wound History of Present Illness This 54-year-old male with past medical history of diabetes, chronic diabetic foot ulcer s/p right 5th toe amputation, osteomyelitis, Charcot foot ulcers, hypertension, and obesity, presents in the ED with a chief complaint of elevated heart rate and temperature. The patient reports was being seen at [facility] urgent care and was advised to go to the ER due to elevated heart rate and temperature. The patient reports chronic right plantar diabetic foot ulcer for many years. He states that left plantar diabetic foot ulcer started about a month ago. He was being seen by his Podiatry for chronic diabetic foot ulcer. Denies dizziness, chest pain, shortness of breath, edema, or other acute symptoms Past Medical History See H&P Past Surgical History See H&P Family History: Cardiovascular disease G8 FATHER, FH: heart attack G8 FATHER, Family history: Cardiovascular disease Ischemic heart disease Allergies: Coded Allergies: NO KNOWN ALLERGIES (Unverified , 10/29/15) Home Meds Reported Medications Levofloxacin Hemihydrate (LEVOFLOXACIN) 750 Mg Tab, 1 TAB PO DAILY 02/08/25 Cyclobenzaprine Hcl (Cyclobenzaprine Hcl) 5 Mg Tab, 10 MG PO, TAB 02/08/25 Trazodone Hcl (Trazodone Hcl) 100 Mg Tab, 1 TAB PO QPM, #30 TAB 1 Refill 02/08/25 Duloxetine Hcl (Cymbalta) 60 Mg Cap, 1 CAP PO DAILY, #90 CAP 3 Refills 02/08/25 Spironolactone (Spironolactone) 25 Mg Tab, 1 TAB PO BID 02/08/25 Pramipexole Dihydrochloride (Pramipexole Dihydrochlori) 0.375 Mg Tab, 0.25 MG PO DAILY, TAB 02/08/25 Bisoprolol Fumarate (Bisoprolol Fumarate) 5 Mg Tab, 1 TAB PO DAILY, #30 TAB 5 Refills 02/08/25 Atorvastatin Calcium (Lipitor) 20 Mg Tab, 1 TAB PO DAILY, #90 TAB 1 Refill 02/08/25 Gabapentin (Gabapentin) 300 Mg Cap, 1 CAP PO TID, #90 CAP 5 Refills 02/08/25 Glipizide (Glipizide Er) 10 Mg Tab, 1 TAB PO BIDAC, #90 TAB 1 Refill 02/08/25 Hydrocodone-Acetaminophen (Hydrocodone/Acetaminophen) 1 Tab Tab, 1 TAB PO TID, #90 TAB 10/29/15 Aspirin (Aspir-81) 81 Mg Tab, 1 TAB PO DAILY, #30 TAB 5 Refills 10/29/15 Fenofibrate (Fenofibrate) 54 Mg Tab, 1 TAB PO DAILY, #30 TAB 5 Refills 10/29/15 Atorvastatin Calcium (ATORVASTATIN CALCIUM) 80 Mg Tab, 1 TAB PO DAILY, #30 TAB 5 Refills 10/29/15 Lisinopril (Lisinopril) 2.5 Mg Tab, 1 TAB PO DAILY, #30 TAB 5 Refills 10/29/15 Carvedilol (Carvedilol) 6.25 Mg Tab, 1 TAB PO BID, #180 TAB 1 Refill 10/29/15 Current Medications Current Medications Medications (Trade) Dose Ordered Sig/Leyla Route PRN Reason Start Time Stop Time Status Last Admin Hydralazine HCl (Apresoline Injection) 10 mg Q6HP PRN IV SBP>150 02/08/25 13:30 Vancomycin HCl 300 ml @ 200 mls/hr Q12H IV 02/09/25 11:00 Vital Signs Vital Signs Date Time Temp Pulse Resp B/P (MAP) Pulse Ox O2 Delivery O2 Flow Rate FiO2 02/09/25 10:49 76 18 111/76 02/09/25 09:11 97.8 98 97.8 02/08/25 20:00 Room Air* 0 21 Physical Exam Dermatological: Skin is dry with mild erythema and some maceration around the wound site No gross deformities noted Mild non-pitting edema present bilaterally Wound: Location: Plantar midfoot Measures: 1 cm in length, 1 cm in width, and wound cm in depth. Depth: Full thickness Base: Fibrous Drainage: Yes Odor: Yes Periwound: Cellulitis Vascular: Dorsalis pedis and posterior tibial pulses are 1+ bilaterally Capillary refill is under 2 seconds Skin temperature is warm bilaterally Neurologic: Protective sensation is absent on the plantar forefoot bilaterally Monofilament testing reveals decreased sensation in multiple plantar sites Musculoskeletal: Range of motion at the ankle and MTP joints is within normal limits. Strength is 5/5 in all tested muscle groups. Gait is antalgic due to offloading of the affected limb. Labs/Diagnostic Data Labs Test 02/09/25 12:22 02/09/25 12:03 02/09/25 06:59 02/08/25 07:51 Range/Units POC Glucose 133 H 70-106 mg/dl Reticulocyte Count (auto) 1.68 H 0.5-1.5 % White Blood Count 8.3 4.4-10.8 10^3/uL Red Blood Count 4.18 L 4.5-5.90 10^6/uL Hemoglobin 10.3 L 13.5-17.5 g/dL Hematocrit 31.4 L 41.0-53.0 % Mean Corpuscular Volume 75.1 L 80.0-100.0 fL Mean Corpuscular Hemoglobin 24.5 L 28.0-32.0 pg Mean Corpuscular Hemoglobin Concent 32.6 32.0-36.0 g/dL Red Cell Distribution Width 18.9 H 11.8-14.3 % Platelet Count 252 140-450 10^3/uL Mean Platelet Volume 7.6 6.9-10.8 fL Neutrophils (%) (Auto) 69.4 37.0-80.0 % Lymphocytes (%) (Auto) 15.7 10.0-50.0 % Monocytes (%) (Auto) 10.6 0.0-12.0 % Eosinophils (%) (Auto) 4.0 0.0-7.0 % Basophils (%) (Auto) 0.3 0.0-2.0 % Neutrophils # (Auto) 5.8 1.6-8.6 10 ^3/uL Lymphocytes # (Auto) 1.3 0.4-5.4 10 ^3/uL Monocytes # (Auto) 0.9 0-1.3 10 ^3/uL Eosinophils # (Auto) 0.3 0-0.8 10 ^3/uL Basophils # (Auto) 0 0-0.2 10 ^3/uL Nucleated Red Blood Cells 0.0 % Sodium Level 139 136-145 mmol/L Potassium Level 3.9 3.5-5.1 mmol/L Chloride Level 101 98-107 mmol/L Carbon Dioxide Level 26 20-31 mmol/L Anion Gap 12 5-15 Blood Urea Nitrogen 8 L 9-23 mg/dL Creatinine 0.76 0.700-1.30 mg/dL Glomerular Filtration Rate Calc 106 >90 mL/min BUN/Creatinine Ratio 10.5 10.0-20.0 Serum Glucose 115 H 74-106 mg/dL Calcium Level 9.9 8.7-10.4 mg/dL Iron Level 23 L 65-175 ug/dL Total Iron Binding Capacity 264 250-425 ug/dL Percent Iron Saturation 8.7 L 20-55 % Total Bilirubin 1.1 H 0.2-1.0 mg/dL Direct Bilirubin 0.4 H <0.3 mg/dL Vancomycin Level Trough 14.0 H 5-10 ug/mL Erythrocyte Sedimentation Rate 87 H 0-20 mm/hr Test 02/08/25 05:24 02/08/25 00:10 02/07/25 08:52 02/06/25 21:13 Range/Units Aspartate Amino Transferase (AST) 17 13-40 U/L Alanine Aminotransferase (ALT) 15 7-40 U/L Alkaline Phosphatase 128 H 46-116 U/L C-Reactive Protein High Sensitivity > 20.00 H <1.0 mg/dL Total Protein 6.7 5.7-8.2 g/dL Albumin 3.9 3.2-4.8 g/dL Lactic Acid Level 1.6 0.4-2.0 mmol/L Hemoglobin A1c 7.3 H <5.7 % A1C Triglycerides Level 95 < 150 mg/dL Cholesterol Level 108 < 200 mg/dL LDL Cholesterol 48 < 100 mg/dL HDL Cholesterol 34 L 40-59 mg/dL Troponin I High Sensitivity 3 L </=54 ng/L Test 02/06/25 20:07 Range/Units B-Type Natriuretic Peptide 74.81 0-100 pg/mL Microbiology Date/Time Source Procedure Growth Status 02/08/25 02:08 Foot Right Gram Stain - Final Resulted 02/08/25 02:08 Foot Right Wound Culture - Preliminary Resulted 02/07/25 08:52 Blood Blood Culture - Preliminary NO GROWTH AFTER 48 HOURS OF INCUBATION. Resulted Problems(with codes): (1) Sinus tachycardia (2) Generalized weakness (3) Leukopenia (4) Thrombocytopenia (5) Hypotension (6) Abnormal laboratory test result (7) CAD (coronary artery disease) of bypass graft (8) HTN (hypertension) (9) Elevated bilirubin (10) Anemia (11) Cellulitis (12) Hyponatremia (13) Foot ulceration Plan/Recommendation ASSESSMENT: Patient is a 54 year old seen on the floor for a worsening ulcer PLAN: - The patients chart was reviewed, clinical findings were discussed with the patient, the etiologies of the conditions were discussed in detail, and a treatment plan was agreed to at this time, with both oral and written instructions provided. - reviewed advanced imaging - discussed plan is to perform an incision and drainage - patient will be NPO at midnight - take him to the OR tomorrow - we will get cultures in the OR - can weightbear as tolerated in postoperative shoe All questions were answered and concerns addressed to the patient's satisfaction. The patient was given the phone number to the clinic and was told how to make contact with the clinic should any concerns or questions arise. Patient understands that if any questions or concerns arise prior to the next appointment, we should be contacted immediately. FOLLOW-UP: Continue to follow while inpatient Plan discussed with: Patient Date of Service: Feb 09, 2025 Billing Provider: NOHEMI DIAZ DPM Common Visit Codes: CONSULT ONLY Consultation Codes: [id number] CONSULT <80MIN NOHEMI DIAZ DPM Feb 09, 2025 13:22
[2025-02-09] MEDS: VANCOMYCIN 1.5GM/300ML 300 ML IV SCH (14:44)
[2025-02-10] VITALS (8 sets, daily range): BP systolic 104–148; BP diastolic 40–73; PULSE 76–99; RESP 16–20; TEMP 97.6–98.4; O2SAT 92–99
[2025-02-10 07:17] LABS: Basophils # (auto) 0 10 ^3/uL (0-0.2); Basophils % (auto) 0.6 % (0.0-2.0); Eosinophils # (auto) 0.3 10 ^3/uL (0-0.8); Eosinophils % (auto) 4.7 % (0.0-7.0); Hematocrit 31.7 % (41.0-53.0); Hemoglobin 10.2 g/dL (13.5-17.5); Lymphocytes # (auto) 0.9 10 ^3/uL (0.4-5.4); Lymphocytes % (auto) 14.9 % (10.0-50.0); Mean Corpuscular Hemoglobin 24.1 pg (28.0-32.0); Mean Corpuscular Hgb Conc. 32.1 g/dL (32.0-36.0); Monocytes # (auto) 0.6 10 ^3/uL (0-1.3); Monocytes % (auto) 9.9 % (0.0-12.0); Neutrophils # (auto) 4.4 10 ^3/uL (1.6-8.6); Neutrophils % (auto) 69.9 % (37.0-80.0); Nucleated Red Blood Cells % 0.1 %; Platelet Count (auto) 266 10^3/uL (140-450); Red Blood Cells 4.22 10^6/uL (4.5-5.90); Red Cell Distribution Width 18.6 % (11.8-14.3); White Blood Cell 6.2 10^3/uL (4.4-10.8)
[2025-02-10 07:26] LABS: Anion Gap 11 (5-15); Carbon Dioxide 25 mmol/L (20-31); Chloride 102 mmol/L (98-107); Sodium 138 mmol/L (136-145)
[2025-02-10 07:27] LABS: Calcium 9.7 mg/dL (8.7-10.4)
[2025-02-10 07:32] LABS: BUN/Creatinine Ratio 12.5 (10.0-20.0)
[2025-02-10 07:33] LABS: Blood Urea Nitrogen 9 mg/dL (9-23); Glucose 125 mg/dL (74-106)
[2025-02-10] MEDS: FERROUS SULFATE 325mg EC TAB PO SCH (08:00)
--- NOTE | 2025-02-10 09:24 | DVHPN2 ---
Subjective This 54-year-old male with past medical history of diabetes, chronic diabetic foot ulcer s/p right 5th toe amputation, osteomyelitis, Charcot foot ulcers, hypertension, and obesity, presents in the ED with a chief complaint of elevated heart rate and temperature. The patient reports was being seen at [facility] urgent care and was advised to go to the ER due to elevated heart rate and temperature. The patient reports chronic right plantar diabetic foot ulcer for many years. He states that left plantar diabetic foot ulcer started about a month ago. He was being seen by his Podiatry for chronic diabetic foot ulcer. Denies dizziness, chest pain, shortness of breath, edema, or other acute symptoms Changes from previous H/P or p: No Changes Eyes: No Pain, No Vision change, No Conjunctivae inflammation, No Eyelid inflammation, No Other, No Redness ENT: No Ear pain, No Ear discharge, No Nose pain, No Nose discharge, No Nose congestion, No Mouth pain, No Mouth swelling, No Throat pain, No Throat swelling, No Other Cardiovascular: No Chest Pain, No Palpitations, No Orthopnea, No Paroxysmal Noc. Dyspnea, No Edema, No Lt Headedness, No Other Respiratory: No Cough, No Dry, No Shortness of breath, No SOB with excertion, No Wheezing, No Hemoptysis, No Pleuritic Pain, No Sputum, No Other Gastrointestinal: No Nausea, No Vomiting, No Abdominal Pain, No Diarrhea, No Constipation, No Melena, No Hematochezia, No Other Genitourinary: No Dysuria, No Frequency, No Incontinence, No Hematuria, No Retention, No Other Musculoskeletal: No other, No neck pain, No shoulder pain, No arm pain, No back pain, No hand pain, No leg pain, No foot pain Skin: Rash, Lesions; No Jaundice, No Bruising; Other (open wounds bilat plantar) Objective Vitals Vital Signs Date Time Temp Pulse Resp B/P (MAP) Pulse Ox O2 Delivery O2 Flow Rate FiO2 02/10/25 09:18 95 17 128/73 02/10/25 08:47 97.7 97 97.7 02/09/25 20:00 Room Air* 0 21 Intake/Output Intake and Output 02/10/25 07:00 Intake Total 2325 ml Output Total 1000 ml Balance 1325 ml Intake Oral 1425 ml IV Total 900 ml Output Urine Total 1000 ml # Voids 3 # Bowel Movements 2 Exam Dermatological: Skin is dry with mild erythema and some maceration around the wound site No gross deformities noted Mild non-pitting edema present bilaterally Wound: Location: Plantar midfoot Measures: 1 cm in length, 1 cm in width, and wound cm in depth. Depth: Full thickness Base: Fibrous Drainage: Yes Odor: Yes Periwound: Cellulitis Vascular: Dorsalis pedis and posterior tibial pulses are 1+ bilaterally Capillary refill is under 2 seconds Skin temperature is warm bilaterally Neurologic: Protective sensation is absent on the plantar forefoot bilaterally Monofilament testing reveals decreased sensation in multiple plantar sites Musculoskeletal: Range of motion at the ankle and MTP joints is within normal limits. Strength is 5/5 in all tested muscle groups. Gait is antalgic due to offloading of the affected limb. Medications Current Medications Medications Dose Ordered Sig/Leyla Route Start Time Stop Time Status Last Admin Dose Admin Vancomycin HCl 0 ml @ 0 mls/hr UD IV 02/06/25 23:45 UNV Acetaminophen/ Hydrocodone Bitart 1 tab Q4HP PRN PO 02/07/25 08:30 02/08/25 17:57 1 TAB Ondansetron HCl 4 mg Q4HP PRN IV 02/07/25 08:30 02/07/25 11:07 4 MG Enoxaparin Sodium 40 mg DAILY SC 02/07/25 10:00 02/09/25 10:11 40 MG Acetaminophen 650 mg Q6HP PRN PO 02/07/25 08:30 02/07/25 22:08 650 MG Morphine Sulfate 2 mg Q4HPRN PRN IV 02/07/25 08:30 02/10/25 09:18 2 MG Vancomycin HCl 0 ml @ 0 mls/hr UD IV 02/07/25 08:30 Aspirin 81 mg DAILY PO 02/07/25 10:00 02/09/25 10:11 81 MG Atorvastatin Calcium 80 mg HS PO 02/07/25 22:00 02/09/25 22:23 80 MG Patient Own Medication 1 tab DAILY PO 02/07/25 10:00 Sodium Chloride 1,000 ml @ 100 mls/hr Q10H IV 02/07/25 08:30 02/09/25 10:11 100 MLS/HR Diagnostic Test (Pha) 1 strip ACHS 02/07/25 11:30 02/10/25 06:29 1 STRIP Insulin Human Regular ACHS SC 02/07/25 11:30 02/09/25 22:23 2 UNITS Dextrose 50 ml UD PRN IV 02/07/25 10:45 Insulin Glargine 10 units HS SC 02/07/25 22:00 02/09/25 22:23 10 UNITS Piperacillin Sod/ Tazobactam Sod 100 ml @ 25 mls/hr Q6H IV 02/08/25 09:00 02/10/25 09:18 25 MLS/HR Hydralazine HCl 10 mg Q6HP PRN IV 02/08/25 13:30 Vancomycin HCl 300 ml @ 200 mls/hr Q12H IV 02/09/25 11:00 02/09/25 23:24 200 MLS/HR Ferrous Sulfate 325 mg BIDWM PO 02/10/25 08:00 Laboratory Results Laboratory Tests 02/10/25 06:22 Chemistry Test 02/10/25 06:22 Calcium Level 9.7 mg/dL (8.7-10.4) Microbiology Microbiology Date/Time Source Procedure Growth Status 02/08/25 02:08 Foot Right Gram Stain - Final Resulted 02/08/25 02:08 Foot Right Wound Culture - Preliminary Resulted 02/07/25 08:52 Blood Blood Culture - Preliminary NO GROWTH AFTER 72 HOURS OF INCUBATION. Resulted Assessment/Plan Assessment/Plan ASSESSMENT: Patient is a 54 year old seen on the floor for a worsening ulcer PLAN: - The patients chart was reviewed, clinical findings were discussed with the patient, the etiologies of the conditions were discussed in detail, and a treatment plan was agreed to at this time, with both oral and written instructions provided. - reviewed advanced imaging - discussed plan is to perform an incision and drainage - patient has been NPO since midnight - take him to the OR today - we will get cultures in the OR - can weightbear as tolerated in postoperative shoe All questions were answered and concerns addressed to the patient's satisfaction. The patient was given the phone number to the clinic and was told how to make contact with the clinic should any concerns or questions arise. Patient understands that if any questions or concerns arise prior to the next appointment, we should be contacted immediately. FOLLOW-UP: Continue to follow while inpatient Plan discussed with: Patient My Orders Orders - NOHEMI DIAZ DPM Procedure Category Date Status Time Npo After Midnight ORDERS 02/09/25 Transmitted Npo (Nothing By DIET 02/10/25 Transmitted Mouth) Diet Breakfast Obtain Consent For: ORDERS 02/09/25 Transmitted 13:19 Problem List: (1) Elevated bilirubin (2) Anemia (3) Cellulitis (4) Hyponatremia (5) Foot ulceration (6) Sinus tachycardia (7) Generalized weakness (8) Leukopenia (9) Thrombocytopenia (10) Hypotension (11) HTN (hypertension) (12) CAD (coronary artery disease) of bypass graft (13) Abnormal laboratory test result Date of Service: Feb 10, 2025 Billing Provider: NOHEMI DIAZ DPM Common Visit Codes: [id number] INP/OBS CARE(HIGH) NOHEMI DIAZ DPM Feb 10, 2025 09:24
--- NOTE | 2025-02-10 12:00 | DVHOP2 ---
Operative Report - 2 Report Details Date: 02/10/25 Preop Diagnosis: 1. Left foot osteomyelitis 2. Left foot abscess 3. Left foot cellulitis 4. Left foot Charcot Postop Diagnosis: Same as preop Surgeon: Nohemi Diaz MD Anesthesiologist: See anesthesia Anesthesia: Mac Consent: The patient was informed of the risks and benefits of the procedure. These include but are not limited to complications of anesthesia, postoperative infection, incomplete relief of symptoms, recurrence of symptoms, damage to blood vessels, nerves and tendons, deep venous thrombosis, pulmonary embolism and possible need for repeat surgery in the future. Complications: None Estimated Blood Loss: Minimal Fluids: See anesthesia Findings: Consistent with diagnosis Indications for Surgery: Worsening left foot wound Name of Procedure Performed 1. Left foot I&D to bone 2. Left foot bone biopsy () 3. Removal of cuboid bone (07616) 4. Left foot delayed closure (41539) Procedure Details Procedure Details: PRE-PROCEDURE INFORMATION: In the pre-op holding area, the extremity to be operated on was clearly marked and the patient verified correct laterality of the marking. The patient was transferred to the OR table and placed in a supine position. A timeout was performed in which identification of the correct pa tient, procedure, location, and materials was done. The left foot and leg were prepped and draped in normal sterile fashion. DESCRIPTION OF PROCEDURE: Attention was directed to the left where area of fluctuance was noted. An incision was made over this area and was deepened through blunt dissection. The incision was deepened to the level of abscess and bone. Care was taken to the dissection to avoid any neurovascular and tendinous structures. The incision was deepened to the bone, and the abscess appeared to be purulent fluid consistent with pus. The cortices of the bone was then removed with rongeur an all necrotic tissue. After the abscess was drained, the area was irrigated with 3 L normal saline using cysto tubing. Deep cultures were then obtained from the wound. The area was then inspected and any areas of tracking, especially along the tendons were also drained. A bone biopsy was then taken of the left cuboid which was deepened to the muscle belly and tendons. The bone was then sent to pathology to determine the extent of osteomyelitis. Complete excision of the remaining cuboid was performed as it appeared to be necrotic in nature. A delayed closure was then performed using 2-0 nylon after was deemed appropriate with no longer concern for infection. POSTOPERATIVE INFORMATION: The patient tolerated the above noted procedure and anesthesia well and was transferred to the PACU with vital signs stable, and vascular status intact with capillary refill intact to all digits. Patient will return to the floor and continue IV antibiotics. Deep cultures were taken. Patient will need 6 weeks IV antibiotics due to the prolonged need for antibiotics. Patient is to be strict nonweightbearing on the left foot. Patient can follow up with me in 1 week Specimen: Left foot cuboid Condition Good Disposition Still a Patient NOHEMI DIAZ DPM Feb 10, 2025 12:00
[2025-02-10] MEDS ORDERED: fentaNYL CITRATE 100 MCG/2 ML VL ONE (12:04)
[2025-02-10] MEDS ORDERED: MIDAZOLAM HCL 2MG/2ML 2ml VIAL (1mg/ml) ONE (12:04)
[2025-02-10] MEDS ORDERED: PROPOFOL 10 MG/ML 20 ML IV ONE ×2 (12:07→12:31)
[2025-02-10] MEDS ORDERED: LIDOCAINE 1% INJ PF 5ML AMP ONE (12:07)
[2025-02-10] MEDS: VANCOMYCIN HCL 1000 MG VL ONE (12:35)
--- NOTE | 2025-02-10 14:46 | DVHINCON2 ---
Date of service: Feb 08, 2025 Family History: Cardiovascular disease G8 FATHER, FH: heart attack G8 FATHER, Family history: Cardiovascular disease Ischemic heart disease Allergies: Coded Allergies: NO KNOWN ALLERGIES (Unverified , 10/29/15) Home Meds Reported Medications Levofloxacin Hemihydrate (LEVOFLOXACIN) 750 Mg Tab, 1 TAB PO DAILY 02/08/25 Cyclobenzaprine Hcl (Cyclobenzaprine Hcl) 5 Mg Tab, 10 MG PO, TAB 02/08/25 Trazodone Hcl (Trazodone Hcl) 100 Mg Tab, 1 TAB PO QPM, #30 TAB 1 Refill 02/08/25 Duloxetine Hcl (Cymbalta) 60 Mg Cap, 1 CAP PO DAILY, #90 CAP 3 Refills 02/08/25 Spironolactone (Spironolactone) 25 Mg Tab, 1 TAB PO BID 02/08/25 Pramipexole Dihydrochloride (Pramipexole Dihydrochlori) 0.375 Mg Tab, 0.25 MG PO DAILY, TAB 02/08/25 Bisoprolol Fumarate (Bisoprolol Fumarate) 5 Mg Tab, 1 TAB PO DAILY, #30 TAB 5 Refills 02/08/25 Atorvastatin Calcium (Lipitor) 20 Mg Tab, 1 TAB PO DAILY, #90 TAB 1 Refill 02/08/25 Gabapentin (Gabapentin) 300 Mg Cap, 1 CAP PO TID, #90 CAP 5 Refills 02/08/25 Glipizide (Glipizide Er) 10 Mg Tab, 1 TAB PO BIDAC, #90 TAB 1 Refill 02/08/25 Hydrocodone-Acetaminophen (Hydrocodone/Acetaminophen) 1 Tab Tab, 1 TAB PO TID, #90 TAB 10/29/15 Aspirin (Aspir-81) 81 Mg Tab, 1 TAB PO DAILY, #30 TAB 5 Refills 10/29/15 Fenofibrate (Fenofibrate) 54 Mg Tab, 1 TAB PO DAILY, #30 TAB 5 Refills 10/29/15 Atorvastatin Calcium (ATORVASTATIN CALCIUM) 80 Mg Tab, 1 TAB PO DAILY, #30 TAB 5 Refills 10/29/15 Lisinopril (Lisinopril) 2.5 Mg Tab, 1 TAB PO DAILY, #30 TAB 5 Refills 10/29/15 Carvedilol (Carvedilol) 6.25 Mg Tab, 1 TAB PO BID, #180 TAB 1 Refill 10/29/15 Current Medications Current Medications Medications (Trade) Dose Ordered Sig/Leyla Route PRN Reason Start Time Stop Time Status Last Admin Ferrous Sulfate 325 mg BIDWM PO 02/10/25 08:00 Vital Signs Vital Signs Date Time Temp Pulse Resp B/P (MAP) Pulse Ox O2 Delivery O2 Flow Rate FiO2 02/10/25 13:25 74 74 119/60 (79) 99 02/10/25 13:00 Room Air 0 02/10/25 13:00 99 02/10/25 12:45 97.8 97.8 Labs/Diagnostic Data Labs Test 02/10/25 11:09 02/10/25 06:22 02/09/25 12:03 02/09/25 06:59 Range/Units POC Glucose 119 H 70-106 mg/dl White Blood Count 6.2 # 4.4-10.8 10^3/uL Red Blood Count 4.22 L 4.5-5.90 10^6/uL Hemoglobin 10.2 L 13.5-17.5 g/dL Hematocrit 31.7 L 41.0-53.0 % Mean Corpuscular Volume 75.0 L 80.0-100.0 fL Mean Corpuscular Hemoglobin 24.1 L 28.0-32.0 pg Mean Corpuscular Hemoglobin Concent 32.1 32.0-36.0 g/dL Red Cell Distribution Width 18.6 H 11.8-14.3 % Platelet Count 266 140-450 10^3/uL Mean Platelet Volume 7.2 6.9-10.8 fL Neutrophils (%) (Auto) 69.9 37.0-80.0 % Lymphocytes (%) (Auto) 14.9 10.0-50.0 % Monocytes (%) (Auto) 9.9 0.0-12.0 % Eosinophils (%) (Auto) 4.7 0.0-7.0 % Basophils (%) (Auto) 0.6 0.0-2.0 % Neutrophils # (Auto) 4.4 1.6-8.6 10 ^3/uL Lymphocytes # (Auto) 0.9 0.4-5.4 10 ^3/uL Monocytes # (Auto) 0.6 0-1.3 10 ^3/uL Eosinophils # (Auto) 0.3 0-0.8 10 ^3/uL Basophils # (Auto) 0 0-0.2 10 ^3/uL Nucleated Red Blood Cells 0.1 % Sodium Level 138 136-145 mmol/L Potassium Level 4.0 3.5-5.1 mmol/L Chloride Level 102 98-107 mmol/L Carbon Dioxide Level 25 20-31 mmol/L Anion Gap 11 5-15 Blood Urea Nitrogen 9 9-23 mg/dL Creatinine 0.72 0.700-1.30 mg/dL Glomerular Filtration Rate Calc 108 >90 mL/min BUN/Creatinine Ratio 12.5 10.0-20.0 Serum Glucose 125 H 74-106 mg/dL Calcium Level 9.7 8.7-10.4 mg/dL Reticulocyte Count (auto) 1.68 H 0.5-1.5 % Haptoglobin 509 H 29-370 mg/dL Iron Level 23 L 65-175 ug/dL Total Iron Binding Capacity 264 250-425 ug/dL Percent Iron Saturation 8.7 L 20-55 % Total Bilirubin 1.1 H 0.2-1.0 mg/dL Direct Bilirubin 0.4 H <0.3 mg/dL Vancomycin Level Trough 14.0 H 5-10 ug/mL Test 02/08/25 07:51 02/08/25 05:24 02/08/25 00:10 02/07/25 08:52 Range/Units Erythrocyte Sedimentation Rate 87 H 0-20 mm/hr Aspartate Amino Transferase (AST) 17 13-40 U/L Alanine Aminotransferase (ALT) 15 7-40 U/L Alkaline Phosphatase 128 H 46-116 U/L C-Reactive Protein High Sensitivity > 20.00 H <1.0 mg/dL Total Protein 6.7 5.7-8.2 g/dL Albumin 3.9 3.2-4.8 g/dL Lactic Acid Level 1.6 0.4-2.0 mmol/L Hemoglobin A1c 7.3 H <5.7 % A1C Triglycerides Level 95 < 150 mg/dL Cholesterol Level 108 < 200 mg/dL LDL Cholesterol 48 < 100 mg/dL HDL Cholesterol 34 L 40-59 mg/dL Test 02/06/25 21:13 02/06/25 20:07 Range/Units Troponin I High Sensitivity 3 L </=54 ng/L B-Type Natriuretic Peptide 74.81 0-100 pg/mL Microbiology Date/Time Source Procedure Growth Status 02/08/25 02:08 Foot Right Gram Stain - Final Resulted 02/08/25 02:08 Foot Right Wound Culture - Preliminary Resulted 02/07/25 08:52 Blood Blood Culture - Preliminary NO GROWTH AFTER 72 HOURS OF INCUBATION. 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 Washington Sanchez is a 54?year?old male with a history of long?standing diabetes, bilateral Charcot foot, chronic foot ulcers and prior right toe amputation who presents from the ED with a newly worsened left plantar mid?foot ulcer. The ulcer has purulent, foul?smelling drainage. CT of the left foot shows destructive osseous changes and intra?osseous gas concerning for osteomyelitis; MRI demonstrates extensive signal abnormality consistent with neuropathic arthropathy vs osteomyelitis. Initial labs notable for Hgb 11.2g/dL, platelets 287K, Na 132mmol/L, BUN 12mg/dL, Cr 0.91mg/dL, BNP 74.84pg/mL; troponin 3 (units not specified). Blood cultures pending. Plan 1. Suspected left foot osteomyelitis / deep soft?tissue infection - Initiated IV vancomycin + piperacillin?tazobactam in ED. - Obtain intra?operative deep tissue / bone cultures (aerobic & anaerobic) at time of debridement. - If bone involvement confirmed, plan for 6weeks of IV antibiotics (empiric vancomycin+ceftriaxone; adjust per culture / sensitivities). - Daily wound assessment; monitor for systemic signs of sepsis. 2. Surgical management / Podiatry - Urgent podiatry consult for operative debridement; request evaluation of extent of Charcot collapse and bone fragmentation. - Intra?op specimen collection as above. 3. Diabetes poor control - Target bedside glucoses <180mg/dL. - Reinstate home diabetic regimen once NPO status clears; consider basal?bolus insulin while inpatient. - Endocrinology consult if persistent hyperglycemia. 4. Hypertension - Continue home antihypertensives when clinically appropriate; monitor BP. 5. Obesity / Education & Follow?up - Nutritional counseling; encourage weight?appropriate diet. - Arrange close follow?up with PCP, endocrinology, wound care, and podiatry post?discharge. Isolation Precautions: Standard Plan discussed with patient; subject to change as new data emerge. HISTORY Information obtained from patient and ED documentation. History of Present Illness Chronic bilateral diabetic foot ulcers; right plantar ulcer closed, left plantar ulcer opened ~1month ago. Outpatient MRI initially negative for infection; most recent evaluation showed bone fragmentation and edema prompting ED visit. ED findings: purulent, foul?smelling drainage from left plantar ulcer; elevated heart rate and temperature (exact values not documented). No tobacco, alcohol, or illicit drug use reported. Review of Systems (10?system, all others negative unless noted) Constitutional: Reports recent fever. Skin/MSK: Reports worsening left foot ulcer with drainage and pain; denies new right foot pain. All other systems reviewed and negative. Past Medical History Diabetes mellitus Bilateral Charcot foot / chronic osteomyelitis Status post right toe amputation Hypertension Obesity Past Surgical History Right toe amputation (date not provided) Medications Home regimen not detailed in transcript. (Not provided) Allergies Not provided in transcript. Family History Not discussed. Social History Never smoker No alcohol or recreational drug use Not sexually active currently (Additional details not provided) OBJECTIVE Vital Signs Elevated heart rate and temperature noted on ED arrival; exact values not provided. Physical Exam General: NAD Neck: Supple. No masses. HEENT: PERRL. Normal lids and conjunctiva. Moist mucous membranes. Oropharynx without lesions, exudates or excessive erythema. Normal external nose/ears. Heart: Regular rhythm, normal rate. No murmur. No lower?extremity edema. Lungs: Normal respiratory effort. Clear to auscultation bilaterally. No wheezes. No crackles. Abdomen: Soft. Non?tender. Non?distended. No masses or hernia. Msk: No digital cyanosis. Normal strength and tone in all 4 limbs. Skin: Warm and dry except left plantar mid?foot ulcer with purulent, foul?smelling drainage; right plantar ulcer well?healed/closed. Bilateral Charcot deformities. Neuro: Alert. No facial droop or slurred speech. EOMI. Sensation intact to soft touch in all 4 limbs. Psych: Appropriate mood. Full affect. Oriented to person, place, time, and situation. Diagnostic Studies CT left foot (non?contrast): Destructive changes of bases of 2nd5th metatarsals/cuboid with intra?osseous gas; diffuse soft?tissue edema; no discrete abscess. MRI left foot: Findings consistent with neuropathic arthropathy vs osteomyelitis; wound tract with surrounding soft?tissue inflammatory change. Labs: Hgb 11.2g/dL, Plt 287K/L, Na 132mmol/L, BUN 12mg/dL, Cr 0.91mg/dL, BNP 74.84pg/mL, Troponin 3 (units not specified). WBC value unclear in transcript. Blood cultures drawn; results pending. Plan discussed with: Patient SUKHI PARADA MD Feb 10, 2025 14:46
--- NOTE | 2025-02-10 14:53 | DVHPN2 ---
Progress Note - Dictate Date Seen: Feb 10, 2025 Medical Necessity Reason Pt with a Central, PICC or Fol: No Subjective Patient was taken to OR today and found to have deep infection into the cuboid bone that was eventually completely removed do to necrosis. Patient tolerated procedure well and was examined in the post anesthesia room. Patient without any complaints. was present in patient room and would like to take patient home on IV abx rather then him being transferred to SNF. vital signs Vital Sign Date Time Temp Pulse Resp B/P (MAP) Pulse Ox O2 Delivery O2 Flow Rate FiO2 02/10/25 13:25 74 74 119/60 (79) 99 02/10/25 13:00 Room Air 0 02/10/25 13:00 99 02/10/25 12:45 97.8 97.8 Total Intake and Output 02/09/25 02/09/25 02/10/25 15:00 23:00 07:00 Intake Total 200 ml 925 ml 1200 ml Output Total 1000 ml Balance 200 ml 925 ml 200 ml medications Current Medications Medications Dose Ordered Sig/Leyla Route Start Time Stop Time Status Last Admin Dose Admin Vancomycin HCl 0 ml @ 0 mls/hr UD IV 02/06/25 23:45 UNV Acetaminophen/ Hydrocodone Bitart 1 tab Q4HP PRN PO 02/07/25 08:30 02/08/25 17:57 1 TAB Ondansetron HCl 4 mg Q4HP PRN IV 02/07/25 08:30 02/07/25 11:07 4 MG Enoxaparin Sodium 40 mg DAILY SC 02/07/25 10:00 02/09/25 10:11 40 MG Acetaminophen 650 mg Q6HP PRN PO 02/07/25 08:30 02/07/25 22:08 650 MG Morphine Sulfate 2 mg Q4HPRN PRN IV 02/07/25 08:30 02/10/25 09:18 2 MG Vancomycin HCl 0 ml @ 0 mls/hr UD IV 02/07/25 08:30 Aspirin 81 mg DAILY PO 02/07/25 10:00 02/09/25 10:11 81 MG Atorvastatin Calcium 80 mg HS PO 02/07/25 22:00 02/09/25 22:23 80 MG Patient Own Medication 1 tab DAILY PO 02/07/25 10:00 Sodium Chloride 1,000 ml @ 100 mls/hr Q10H IV 02/07/25 08:30 02/09/25 10:11 100 MLS/HR Diagnostic Test (Pha) 1 strip ACHS 02/07/25 11:30 02/10/25 11:14 1 STRIP Insulin Human Regular ACHS SC 02/07/25 11:30 02/09/25 22:23 2 UNITS Dextrose 50 ml UD PRN IV 02/07/25 10:45 Insulin Glargine 10 units HS SC 02/07/25 22:00 02/09/25 22:23 10 UNITS Piperacillin Sod/ Tazobactam Sod 100 ml @ 25 mls/hr Q6H IV 02/08/25 09:00 02/10/25 09:18 25 MLS/HR Hydralazine HCl 10 mg Q6HP PRN IV 02/08/25 13:30 Vancomycin HCl 300 ml @ 200 mls/hr Q12H IV 02/09/25 11:00 02/09/25 23:24 200 MLS/HR Ferrous Sulfate 325 mg BIDWM PO 02/10/25 08:00 objective GEN: A&Ox3, NAD HEENT: NC/AT, EOMI CV: S1S2+, RRR, No rubs, gallops, or murmurs Lungs: Clear to auscultation bilaterally Abd: Soft, NT, ND + BS RLE: with kerlex dressing that is clean, dry, and intact. laboratory and microbiology Laboratory Tests 02/10/25 06:22 Test 02/10/25 06:22 Range/Units Serum Glucose 125 H 74-106 mg/dL Problem List 1. SIRS 2. Left foot Infected diabetic foot ulcer with surrounding cellulitis 3. Left foot cuboid bone osteomyelitis/necrosis Secondary Diagnosis: 4. Chronic Right foot diabetic foot ulcer 5. Diabetes Mellitus Type 2 with complications 6. Essential HTN 7. Hyperlipidemia Assessment/Plan - Continue broad spectrum Abx with Vancomycin And Zosyn Day 4, BCx without any growth to date. Wound Cx and Cuboid bone biopsy was performed in OR, ID is on board. - Podiatry recommending 6 weeks of IV abx and one week follow up post procedure and non weight bearing on the left foot. - PICC Line order has been placed. - Diabetic Diet, AC/HS accuchecks, and ISS (HbA1c at 7.3) - ESR 87 and CRP > 20 - AM Labs, - Hydralazine 10mg IV PRN Q6H for SBP > 150mmHg DVT prophylaxis: Lovenox 40mg SQ daily Full Code Dispo: Patient would like patient to come home tomorrow for his prolonged IV Abx. Patient has experience with IV abx from patient previous need and apparently patient mother is a hospice nurse and is also able to administer IV abx. [facility] [employer] Worker to arrange for IV abx at home once Abx recommendations is given by ID. Plan discussed with: Patient, Spouse CAITY BAUTISTA MD Feb 10, 2025 14:53
[2025-02-10 15:24] LABS: INR 1.08 (0.9-1.15); Prothrombin Time 11.4 sec (9.3-11.8)
[2025-02-10] MEDS: LIDOCAINE 1% (LOCAL ANESTH.) PF 5ml SDV ID ONE (17:45)
[2025-02-10] MEDS: Juven Fruit Punch Powder PACKET 28.8gm PO SCH (17:49)
[2025-02-10] MEDS: SODIUM CHLOR 0.9% PF (SALINE LOCK) 10ML VIAL/SYR IV SCH (21:35)
[2025-02-11 01:00] VITALS: BP 103/58; PULSE 86; RESP 20; TEMP 97.6; O2SAT 97
[2025-02-11 03:25] VITALS: BP 107/56; PULSE 81; RESP 17; O2SAT 96
[2025-02-11 05:00] VITALS: BP 118/70; PULSE 94; RESP 18; TEMP 98; O2SAT 96
[2025-02-11 07:24] LABS: Anion Gap 10 (5-15); Carbon Dioxide 26 mmol/L (20-31); Chloride 100 mmol/L (98-107); Potassium 3.8 mmol/L (3.5-5.1); Sodium 136 mmol/L (136-145)
[2025-02-11 07:25] LABS: Calcium 9.8 mg/dL (8.7-10.4)
[2025-02-11 07:30] LABS: BUN/Creatinine Ratio 10.1 (10.0-20.0)
[2025-02-11 07:31] LABS: Blood Urea Nitrogen 7 mg/dL (9-23); Glucose 118 mg/dL (74-106)
[2025-02-11 07:32] LABS: Basophils # (auto) 0 10 ^3/uL (0-0.2); Eosinophils # (auto) 0.3 10 ^3/uL (0-0.8); Mean Corpuscular Hemoglobin 24.8 pg (28.0-32.0); Monocytes # (auto) 0.7 10 ^3/uL (0-1.3); White Blood Cell 7.2 10^3/uL (4.4-10.8)
[2025-02-11 07:35] LABS: Basophils % (auto) 0.6 % (0.0-2.0); Eosinophils % (auto) 4.1 % (0.0-7.0); Hematocrit 29.9 % (41.0-53.0); Hemoglobin 9.8 g/dL (13.5-17.5); Lymphocytes % (auto) 14.5 % (10.0-50.0); Mean Corpuscular Hgb Conc. 32.9 g/dL (32.0-36.0); Mean Corpuscular Volume 75.4 fL (80.0-100.0); Monocytes % (auto) 9.9 % (0.0-12.0); Neutrophils # (auto) 5.1 10 ^3/uL (1.6-8.6); Neutrophils % (auto) 70.9 % (37.0-80.0); Platelet Count (auto) 296 10^3/uL (140-450); Red Blood Cells 3.97 10^6/uL (4.5-5.90); Red Cell Distribution Width 18.8 % (11.8-14.3)
[2025-02-11] MEDS: cefTRIAXone 2GM/50ML D5W 50 ML IV SCH (08:42)
[2025-02-11 08:53] VITALS: BP 117/60; PULSE 74; RESP 20; TEMP 98.1; O2SAT 98
[2025-02-11 12:33] VITALS: BP 128/59; PULSE 87; RESP 20; TEMP 97.8; O2SAT 98
[2025-02-11] MEDS ORDERED: METF-370 PO (12:39)
--- NOTE | 2025-02-11 15:15 | DVHDS2 ---
Discharge Summary Date of Admission Feb 07, 2025 at 08:27 Date of Discharge: Feb 11, 2025 Labs/Diagnostic Data: Laboratory Results Test 02/11/25 11:32 02/11/25 06:33 02/10/25 14:47 02/09/25 12:03 POC Glucose 150 mg/dl (70-106) White Blood Count 7.2 10^3/uL (4.4-10.8) Red Blood Count 3.97 10^6/uL (4.5-5.90) Hemoglobin 9.8 g/dL (13.5-17.5) Hematocrit 29.9 % (41.0-53.0) Mean Corpuscular Volume 75.4 fL (80.0-100.0) Mean Corpuscular Hemoglobin 24.8 pg (28.0-32.0) Mean Corpuscular Hemoglobin Concent 32.9 g/dL (32.0-36.0) Red Cell Distribution Width 18.8 % (11.8-14.3) Platelet Count 296 10^3/uL (140-450) Mean Platelet Volume 7.2 fL (6.9-10.8) Neutrophils (%) (Auto) 70.9 % (37.0-80.0) Lymphocytes (%) (Auto) 14.5 % (10.0-50.0) Monocytes (%) (Auto) 9.9 % (0.0-12.0) Eosinophils (%) (Auto) 4.1 % (0.0-7.0) Basophils (%) (Auto) 0.6 % (0.0-2.0) Neutrophils # (Auto) 5.1 10 ^3/uL (1.6-8.6) Lymphocytes # (Auto) 1.0 10 ^3/uL (0.4-5.4) Monocytes # (Auto) 0.7 10 ^3/uL (0-1.3) Eosinophils # (Auto) 0.3 10 ^3/uL (0-0.8) Basophils # (Auto) 0 10 ^3/uL (0-0.2) Nucleated Red Blood Cells 0.0 % Sodium Level 136 mmol/L (136-145) Potassium Level 3.8 mmol/L (3.5-5.1) Chloride Level 100 mmol/L (98-107) Carbon Dioxide Level 26 mmol/L (20-31) Anion Gap 10 (5-15) Blood Urea Nitrogen 7 mg/dL (9-23) Creatinine 0.69 mg/dL (0.700-1.30) Glomerular Filtration Rate Calc 109 mL/min (>90) BUN/Creatinine Ratio 10.1 (10.0-20.0) Serum Glucose 118 mg/dL (74-106) Calcium Level 9.8 mg/dL (8.7-10.4) Prothrombin Time 11.4 sec (9.3-11.8) Prothrombin Time INR 1.08 (0.9-1.15) Reticulocyte Count (auto) 1.68 % (0.5-1.5) Haptoglobin 509 mg/dL (29-370) Test 02/09/25 06:59 02/08/25 07:51 02/08/25 05:24 02/08/25 00:10 Iron Level 23 ug/dL (65-175) Total Iron Binding Capacity 264 ug/dL (250-425) Percent Iron Saturation 8.7 % (20-55) Total Bilirubin 1.1 mg/dL (0.2-1.0) Direct Bilirubin 0.4 mg/dL (<0.3) Vancomycin Level Trough 14.0 ug/mL (5-10) Erythrocyte Sedimentation Rate 87 mm/hr (0-20) Aspartate Amino Transferase (AST) 17 U/L (13-40) Alanine Aminotransferase (ALT) 15 U/L (7-40) Alkaline Phosphatase 128 U/L (46-116) C-Reactive Protein High Sensitivity > 20.00 mg/dL (<1.0) Total Protein 6.7 g/dL (5.7-8.2) Albumin 3.9 g/dL (3.2-4.8) Lactic Acid Level 1.6 mmol/L (0.4-2.0) Test 02/07/25 08:52 02/06/25 21:13 02/06/25 20:07 Hemoglobin A1c 7.3 % A1C (<5.7) Triglycerides Level 95 mg/dL (< 150) Cholesterol Level 108 mg/dL (< 200) LDL Cholesterol 48 mg/dL (< 100) HDL Cholesterol 34 mg/dL (40-59) Troponin I High Sensitivity 3 ng/L (</=54) B-Type Natriuretic Peptide 74.81 pg/mL (0-100) Other Laboratory Tests 02/11/25 06:33 Brief Hx & Hospital Course: Patient is a 54-year-old male with past medical history of type 2 diabetes, chronic diabetic foot ulcer with right fifth toe amputation, history of Charcot's foot, hypertension, obesity who presents from [facility] urgent care after complaints of left foot drainage with associated fever and chills. Patient has been following podiatry outpatient. Patient notes his foot ulcer has been present for the past month. Patient was admitted and treated for sepsis. Patient was seen by podiatry and ultimately underwent left foot I&D with removal of the left cuboid bone due to noted necrosis. This was sent off to pathology. Patient had no digits amputated. Patient was seen and treated by infectious disease who recommended long-term IV antibiotics for 6 weeks. PICC line was placed. 1 month was set up. Patient to be discharged on Rocephin 2 g daily and vancomycin 1.5 g IV every 12 hours for total 6 weeks. Patient previously has had 2 prescriptions written for [place] written by the urgent care and taxonomist. Patient is continue taking these medications as needed for pain. A stat referral was placed for pain management. Patient is also follow- up with podiatry and endocrinology for diabetes management. Hemoglobin A1c was noted to be 7.3 during this hospitalization. He was started on metformin 500mg BID in addition to his glypizide which he takes at home. Patient was counseled on importance of diabetic diet and lifestyle changes. All questions answered at bedside. Patient provided crutches to assist with ambulation. Patient given time off work until February 25 given extent of surgery. Patient to follow-up with primary care physician for further clearance. [facility] case management to arrange follow-up appointments. Condition at Discharge: Good Final Diagnosis/Problems List Osteomyelitis Secondary Diagnosis: Type 2 Diabetes Hypertension Sepsis due to Osteomyelitis Charcot's Foot Discharge Disposition: Home with Health Services Discharge Instruct/Medications Diet: Consistent carbohydrate Activity: Light activity Follow Up/Referral: Follow up with podiatry and infectious disease. Discharge Statement: "Patient was advised to return to the ER or call 911 if any headaches, dizziness, shortness of breath, chest pain, abdominal pain, bleeding, fevers, or worsening of medical condition. Patient was counseled about treatment plan, medications, possible side effects, patientverbalized understanding. All questions were answered to the best of my ability. This discharge took greater then 30 minutes in planning, reviewing documentation, counseling the patient, and discussing with other team members." ASSESSMENT ASSESSMENT Assessment Osteomyelitis MATT BROWNING DO Feb 11, 2025 15:15
[2025-02-11 15:59] VITALS: BP 128/50; PULSE 87; RESP 20; TEMP 97.8; O2SAT 98
--- NOTE | 2025-02-12 10:16 | DVHPN2 ---
Consult Progress Note Date Seen: Feb 09, 2025 Subjective Patient reports: Other (doing well and awaiting surgery , patient states that his left foot is drainign but is less tender and less red , no odor ) Objective vital signs Vital Sign Date Time Temp Pulse Resp B/P (MAP) Pulse Ox O2 Delivery O2 Flow Rate FiO2 02/11/25 15:59 97.8 87 20 98 02/11/25 12:33 128/59 (82) 02/11/25 08:15 Room Air* 0 21 Total Intake and Output 02/11/25 02/11/25 02/12/25 15:00 23:00 07:00 Intake Total 750 ml 100 ml Output Total 800 ml Balance -50 ml 100 ml medications Current Medications Medications Dose Ordered Sig/Leyla Route Start Time Stop Time Status Last Admin Dose Admin Vancomycin HCl 0 ml @ 0 mls/hr UD IV 02/06/25 23:45 UNV Physical Exam General: NAD Neck: Supple. No masses. HEENT: PERRL. Normal lids and conjunctiva. Moist mucous membranes. Oropharynx without lesions, exudates or excessive erythema. Normal external nose/ears. Heart: Regular rhythm, normal rate. No murmur. No lower?extremity edema. Lungs: Normal respiratory effort. Clear to auscultation bilaterally. No wheezes. No crackles. Abdomen: Soft. Non?tender. Non?distended. No masses or hernia. Msk: No digital cyanosis. Normal strength and tone in all 4 limbs. Skin: Warm and dry except left plantar mid?foot ulcer with purulent, foul?smelling drainage; right plantar ulcer well?healed/closed. Bilateral Charcot deformities. Neuro: Alert. No facial droop or slurred speech. EOMI. Sensation intact to soft touch in all 4 limbs. Psych: Appropriate mood. Full affect. Oriented to person, place, time, and situation. laboratory and microbiology Laboratory Tests 02/11/25 06:33 Test 02/11/25 06:33 Range/Units Serum Glucose 118 H 74-106 mg/dL Problem List/Assessment/Plan Problems(with codes): (1) CAD (coronary artery disease) of bypass graft (2) Abnormal laboratory test result (3) HTN (hypertension) (4) Hypotension (5) Thrombocytopenia (6) Leukopenia (7) Generalized weakness Problem List/Assessment/Plan ASSESSMENT AND PLAN IDProblemList: - Left plantar diabetic foot ulcer with suspected osteomyelitis / Charcot neuro?arthropathy - Diabetes mellitus (poorly controlled) - Bilateral Charcot foot deformity with prior right toe amputation - Hypertension - Obesity Assessment Mr. Washington Sanchez is a 54?year?old male with a history of long?standing diabetes, bilateral Charcot foot, chronic foot ulcers and prior right toe amputation who presents from the ED with a newly worsened left plantar mid?foot ulcer. The ulcer has purulent, foul?smelling drainage. CT of the left foot shows destructive osseous changes and intra?osseous gas concerning for osteomyelitis; MRI demonstrates extensive signal abnormality consistent with neuropathic arthropathy vs osteomyelitis. Initial labs notable for Hgb 11.2g/dL, platelets 287K, Na 132mmol/L, BUN 12mg/dL, Cr 0.91mg/dL, BNP 74.84pg/mL; troponin 3 (units not specified). Blood cultures pending. 02/09: whitecount is 8.3 and growing enterococcus on preliminary wound culture yesterday and it is sensitive to vancomycin and epicillin Plan 1. Suspected left foot osteomyelitis / deep soft?tissue infection - Initiated IV vancomycin + piperacillin?tazobactam in ED. - Obtain intra?operative deep tissue / bone cultures (aerobic & anaerobic) at time of debridement. - If bone involvement confirmed, plan for 6weeks of IV antibiotics (empiric vancomycin+ceftriaxone; adjust per culture / sensitivities). - Daily wound assessment; monitor for systemic signs of sepsis. 2. Surgical management / Podiatry - Urgent podiatry consult for operative debridement; request evaluation of extent of Charcot collapse and bone fragmentation. - Intra?op specimen collection as above. 3. Diabetes poor control - Target bedside glucoses <180mg/dL. - Reinstate home diabetic regimen once NPO status clears; consider basal?bolus insulin while inpatient. - Endocrinology consult if persistent hyperglycemia. 4. Hypertension - Continue home antihypertensives when clinically appropriate; monitor BP. 5. Obesity / Education & Follow?up - Nutritional counseling; encourage weight?appropriate diet. - Arrange close follow?up with PCP, endocrinology, wound care, and podiatry post?discharge. Isolation Precautions: Standard Plan discussed with: Other Dietary Evaluation Review Comments: 1. Upgrade diet to CCHO-75 d/t pt's height and weight. 2. Provide Patrick orange flavor BID to promote wound healing. Expected Outcomes/Goals: Controlled DM, improved glucose utilizations and gradual wt loss. SUKHI PARADA MD Feb 12, 2025 10:16
--- NOTE | 2025-02-12 10:24 | DVHPN2 ---
Consult Progress Note Date Seen: Feb 10, 2025 Subjective Patient reports: Other (S/P operati ve debridement by Dr Vasquez , leg is signidicantly wrapped and packed with gauze ) Objective vital signs Vital Sign Date Time Temp Pulse Resp B/P (MAP) Pulse Ox O2 Delivery O2 Flow Rate FiO2 02/11/25 15:59 97.8 87 20 98 02/11/25 12:33 128/59 (82) 02/11/25 08:15 Room Air* 0 21 Total Intake and Output 02/11/25 02/11/25 02/12/25 15:00 23:00 07:00 Intake Total 750 ml 100 ml Output Total 800 ml Balance -50 ml 100 ml medications Current Medications Medications Dose Ordered Sig/Leyla Route Start Time Stop Time Status Last Admin Dose Admin Vancomycin HCl 0 ml @ 0 mls/hr UD IV 02/06/25 23:45 UNV Physical Exam General: NAD Neck: Supple. No masses. HEENT: PERRL. Normal lids and conjunctiva. Moist mucous membranes. Oropharynx without lesions, exudates or excessive erythema. Normal external nose/ears. Heart: Regular rhythm, normal rate. No murmur. No lower?extremity edema. Lungs: Normal respiratory effort. Clear to auscultation bilaterally. No wheezes. No crackles. Abdomen: Soft. Non?tender. Non?distended. No masses or hernia. Msk: No digital cyanosis. Normal strength and tone in all 4 limbs. Skin: Warm and dry except left plantar mid?foot ulcer with purulent, foul?smelling drainage; right plantar ulcer well?healed/closed. Bilateral Charcot deformities. Neuro: Alert. No facial droop or slurred speech. EOMI. Sensation intact to soft touch in all 4 limbs. Psych: Appropriate mood. Full affect. Oriented to person, place, time, and situation. 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 Washington Sanchez is a 54?year?old male with a history of long?standing diabetes, bilateral Charcot foot, chronic foot ulcers and prior right toe amputation who presents from the ED with a newly worsened left plantar mid?foot ulcer. The ulcer has purulent, foul?smelling drainage. CT of the left foot shows destructive osseous changes and intra?osseous gas concerning for osteomyelitis; MRI demonstrates extensive signal abnormality consistent with neuropathic arthropathy vs osteomyelitis. Initial labs notable for Hgb 11.2g/dL, platelets 287K, Na 132mmol/L, BUN 12mg/dL, Cr 0.91mg/dL, BNP 74.84pg/mL; troponin 3 (units not specified). Blood cultures pending. 02/09: whitecount is 8.3 and growing enterococcus on preliminary wound culture yesterday and it is sensitive to vancomycin and epicillin 02/10: per operative report of Dr Barba there was a significant amount of bone disease with infection tracking to areas of the tendon and bone and entire vubiod bone , requring removal , presumed osteomyelitis , complete excision of the remainign cuboid was performed as it appears necrotic in nature Plan - likely given the diagnosis of osteomyelitis , patient will require 6 weeks of IV vancomycin and Ceftriaxone - follow up on operative culture results and adjust antibiotics accordingly to ensure patient has piccline in place - Patient will need wound care at home - follow up with podiatry for additional potential debridement in post operative periods and post surgical management - recommend patient follow up with infectious disease in 4 weeks - follow up with primary care closely after discharge to improve blood sugar control 1. Suspected left foot osteomyelitis / deep soft?tissue infection - Initiated IV vancomycin + piperacillin?tazobactam in ED. - Obtain intra?operative deep tissue / bone cultures (aerobic & anaerobic) at time of debridement. - If bone involvement confirmed, plan for 6weeks of IV antibiotics (empiric vancomycin+ceftriaxone; adjust per culture / sensitivities). - Daily wound assessment; monitor for systemic signs of sepsis. 2. Surgical management / Podiatry - Urgent podiatry consult for operative debridement; request evaluation of extent of Charcot collapse and bone fragmentation. - Intra?op specimen collection as above. 3. Diabetes poor control - Target bedside glucoses <180mg/dL. - Reinstate home diabetic regimen once NPO status clears; consider basal?bolus insulin while inpatient. - Endocrinology consult if persistent hyperglycemia. 4. Hypertension - Continue home antihypertensives when clinically appropriate; monitor BP. 5. Obesity / Education & Follow?up - Nutritional counseling; encourage weight?appropriate diet. - Arrange close follow?up with PCP, endocrinology, wound care, and podiatry post?discharge. Isolation Precautions: Standard Plan discussed with: Other Dietary Evaluation Review Comments: 1. Upgrade diet to CCHO-75 d/t pt's height and weight. 2. Provide Patrick orange flavor BID to promote wound healing. Expected Outcomes/Goals: Controlled DM, improved glucose utilizations and gradual wt loss. SUKHI PARADA MD Feb 12, 2025 10:24
--- NOTE | 2025-02-12 10:26 | DVHPN2 ---
Consult Progress Note Date Seen: Feb 11, 2025 Subjective Patient reports: Other (no pain on plantar foot and able to ambulate with physical therapy ) Objective vital signs Vital Sign Date Time Temp Pulse Resp B/P (MAP) Pulse Ox O2 Delivery O2 Flow Rate FiO2 02/11/25 15:59 97.8 87 20 98 02/11/25 12:33 128/59 (82) 02/11/25 08:15 Room Air* 0 21 Total Intake and Output 02/11/25 02/11/25 02/12/25 15:00 23:00 07:00 Intake Total 750 ml 100 ml Output Total 800 ml Balance -50 ml 100 ml medications Current Medications Medications Dose Ordered Sig/Leyla Route Start Time Stop Time Status Last Admin Dose Admin Vancomycin HCl 0 ml @ 0 mls/hr UD IV 02/06/25 23:45 UNV Physical Exam General: NAD Neck: Supple. No masses. HEENT: PERRL. Normal lids and conjunctiva. Moist mucous membranes. Oropharynx without lesions, exudates or excessive erythema. Normal external nose/ears. Heart: Regular rhythm, normal rate. No murmur. No lower?extremity edema. Lungs: Normal respiratory effort. Clear to auscultation bilaterally. No wheezes. No crackles. Abdomen: Soft. Non?tender. Non?distended. No masses or hernia. Msk: No digital cyanosis. Normal strength and tone in all 4 limbs. Skin: Warm and dry except left plantar mid?foot ulcer with purulent, foul?smelling drainage; right plantar ulcer well?healed/closed. Bilateral Charcot deformities. Neuro: Alert. No facial droop or slurred speech. EOMI. Sensation intact to soft touch in all 4 limbs. Psych: Appropriate mood. Full affect. Oriented to person, place, time, and situation. 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 Washington Sanchez is a 54?year?old male with a history of long?standing diabetes, bilateral Charcot foot, chronic foot ulcers and prior right toe amputation who presents from the ED with a newly worsened left plantar mid?foot ulcer. The ulcer has purulent, foul?smelling drainage. CT of the left foot shows destructive osseous changes and intra?osseous gas concerning for osteomyelitis; MRI demonstrates extensive signal abnormality consistent with neuropathic arthropathy vs osteomyelitis. Initial labs notable for Hgb 11.2g/dL, platelets 287K, Na 132mmol/L, BUN 12mg/dL, Cr 0.91mg/dL, BNP 74.84pg/mL; troponin 3 (units not specified). Blood cultures pending. 02/09: whitecount is 8.3 and growing enterococcus on preliminary wound culture yesterday and it is sensitive to vancomycin and epicillin 02/10: per operative report of Dr Barba there was a significant amount of bone disease with infection tracking to areas of the tendon and bone and entire vubiod bone , requring removal , presumed osteomyelitis , complete excision of the remaining cuboid was performed as it appears necrotic in nature 02/11: Patient can go home with IV antibiotics and cleared by physical therapy , no new growth on operative cultures Plan - likely given the diagnosis of osteomyelitis , patient will require 6 weeks of IV vancomycin and Ceftriaxone - follow up on operative culture results and adjust antibiotics accordingly to ensure patient has piccline in place - Patient will need wound care at home - follow up with podiatry for additional potential debridement in post operative periods and post surgical management - recommend patient follow up with infectious disease in 4 weeks - follow up with primary care closely after discharge to improve blood sugar control 1. Suspected left foot osteomyelitis / deep soft?tissue infection - Initiated IV vancomycin + piperacillin?tazobactam in ED. - Obtain intra?operative deep tissue / bone cultures (aerobic & anaerobic) at time of debridement. - If bone involvement confirmed, plan for 6weeks of IV antibiotics (empiric vancomycin+ceftriaxone; adjust per culture / sensitivities). - Daily wound assessment; monitor for systemic signs of sepsis. 2. Surgical management / Podiatry - Urgent podiatry consult for operative debridement; request evaluation of extent of Charcot collapse and bone fragmentation. - Intra?op specimen collection as above. 3. Diabetes poor control - Target bedside glucoses <180mg/dL. - Reinstate home diabetic regimen once NPO status clears; consider basal?bolus insulin while inpatient. - Endocrinology consult if persistent hyperglycemia. 4. Hypertension - Continue home antihypertensives when clinically appropriate; monitor BP. 5. Obesity / Education & Follow?up - Nutritional counseling; encourage weight?appropriate diet. - Arrange close follow?up with PCP, endocrinology, wound care, and podiatry post?discharge. Isolation Precautions: Standard Plan discussed with: Other Dietary Evaluation Review Comments: 1. Upgrade diet to CCHO-75 d/t pt's height and weight. 2. Provide Patrick orange flavor BID to promote wound healing. Expected Outcomes/Goals: Controlled DM, improved glucose utilizations and gradual wt loss. SUKHI PARADA MD Feb 12, 2025 10:26
== END 2025-02-11 16:46 | disposition home health service (06) | DRG 854 ==
LOC: EDBD 19:46 → ER 19:46 → OVERFLOW 02-07 08:27 → CENTRAL 02-08 19:01
PROVIDERS: ADMIT Student in an Organized Health Care Education/Training Program; ATTEND Student in an Organized Health Care Education/Training Program
PROC: 0QTM0ZZ Resection of Left Tarsal, Open Approach (ICD-10-PCS; 2025-02-10)
PROC: 0Y9N0ZZ Drainage of Left Foot, Open Approach (ICD-10-PCS; 2025-02-10)
PROC: 02HV33Z Insertion of Infusion Device into Superior Vena Cava, Percutaneous Approach (ICD-10-PCS; 2025-02-10)
PROC: B548ZZA Ultrasonography of Superior Vena Cava, Guidance (ICD-10-PCS; 2025-02-10)
PROC: 0QBM0ZX Excision of Left Tarsal, Open Approach, Diagnostic (ICD-10-PCS; principal; 2025-02-10 12:07)
DX: A41.9 Sepsis, unspecified organism (principal); E87.1 Hypo-osmolality and hyponatremia; L03.116 Cellulitis of left lower limb; L02.612 Cutaneous abscess of left foot; M86.8X7 Other osteomyelitis, ankle and foot; E11.621 Type 2 diabetes mellitus with foot ulcer; E11.65 Type 2 diabetes mellitus with hyperglycemia; E66.9 Obesity, unspecified; I50.9 Heart failure, unspecified; I11.0 Hypertensive heart disease with heart failure; I25.10 Atherosclerotic heart disease of native coronary artery without angina pectoris; D64.9 Anemia, unspecified; L97.529 Non-pressure chronic ulcer of other part of left foot with unspecified severity; L97.519 Non-pressure chronic ulcer of other part of right foot with unspecified severity; E11.69 Type 2 diabetes mellitus with other specified complication; E78.5 Hyperlipidemia, unspecified; Z79.82 Long term (current) use of aspirin; Z68.30 Body mass index [BMI] 30.0-30.9, adult; Z82.49 Family history of ischemic heart disease and other diseases of the circulatory system; Z79.899 Other long term (current) drug therapy
CPT/HCPCS: 36415; 36569; 73700; 73718; 74176; 76937; 80048; 80053; 80061; 80202; 82247; 82248; 82962; 83010; 83036; 83540; 83550; 83605; 83880; 84484; 85025; 85045; 85610; 85652; 86141; 86880; 87040; 87070; 87075; 87077; 87186; 87205; 93005; G0378; J1815; J1885; J2250; J2405; J2543; J2704